=== PATIENT | female | born 1950 | race Caucasian/White ===

== ENCOUNTER → 2017-12-18 12:22 | Outpatient (CLI) | payer MEDICARE, OTHER, SELFPAY ==
--- NOTE | 2017-12-18 12:25 | HPBI_ITS ---
MAMMOGRAPHY - BILATERAL SCREENING REASON FOR EXAM: Female, 67 years old. Routine annual screening examination. PERTINENT HISTORY: Non-contributory. TECHNIQUE: Digital bilateral breast esther (3D mammographic acquisition) in the CC and MLO projections. 2-D mediolateral oblique (MLO) and craniocaudad (CC) views of both breasts were obtained. CAD: Full Field Digital Mammography with Computer Added Detection was performed. COMPARISON: Comparison is made with prior chest examination dated September 25, 2016. FINDINGS: Breast Composition: The breasts are heterogeneously dense, which may obscure small masses. There are no dominant masses or suspicious calcifications. No other significant abnormalities are identified. There has been no significant change since the prior study. HPBI/SCREENING MAMM (CAD), BILAT IMPRESSION: Stable bilateral screening mammogram. Yearly follow-up mammogram recommended. (A) ASSESSMENT CATEGORY: BIRADS Category 1: Negative. A letter regarding these results will be sent to the patient by the facility within 30 days. Approximately 10% of breast cancers are not detected by mammography. A normal mammogram should not delay biopsy of a clinically suspicious abnormality. [id number] Electronically Signed: Kieran Chaudhry MD at 13:36 EST Tel [phone], Service support ,
== END ==
PROVIDERS: Family Provider Family Medicine; PCP Family Medicine; Visit Provider Family Medicine
DX: Z12.31 Encounter for screening mammogram for malignant neoplasm of breast (principal)
CPT/HCPCS: 77063; 77067

== ENCOUNTER → 2018-03-13 09:31 | Outpatient (CLI) | payer MEDICARE, OTHER, SELFPAY ==
--- NOTE | 2018-03-13 09:33 | MRI_ITS ---
STUDY: MRI LEFT KNEE REASON FOR EXAM: Intermittent pain in knee since August, no specific injury. TECHNIQUE: Standardized fat and water weighted pulse sequences were obtained in all 3 orthogonal planes. COMPARISON: Radiographs 09/02/2017. FINDINGS: There is a small oblique/horizontal tear of the inferior articular surface of the anterior body of the medial meniscus (proton-density coronal image 17; proton density sagittal image 8; T2 coronal image 17). Normal hyaline cartilage of the medial femorotibial compartment. Normal medial femoral condyle and tibial plateau. Normal medial collateral ligamentous complex (MCL). Normal distal semimembranosus, gracilis and semitendinosus tendons. Normal lateral meniscus. Normal hyaline cartilage of the lateral femorotibial compartment. Normal lateral femoral condyle and tibial plateau. There is arthrosis of the proximal tibiofibular articulation with small marginal osteophytes and chondral thinning (T2 coronal image 12). Normal lateral collateral (fibular) ligament. Normal popliteus tendon. Normal biceps femoris tendon. Normal anterior cruciate ligament (ACL). Normal posterior cruciate ligament (PCL). Normal congruent patellofemoral articulation. Normal hyaline cartilage of the patellofemoral compartment. Normal medial and lateral patellar retinaculum. Normal quadriceps tendon. Normal patellar tendon. Normal Hoffa's fat pad. There is a small joint effusion. There is a thin medial patellar plica. There is a small popliteal cyst with mild extravasation of fluid (T2 sagittal images 7-9). There is a lobulated ganglion cyst at the medial aspect of the proximal tibiofibular articulation (T2 sagittal images 16, 17) measuring 1.3 cm in AP dimension. The otherwise visualized osseous structures are unremarkable. MRI/Lower Ext Joint Only (Routine) IMPRESSION: Small medial meniscal tear. Arthrosis of the proximal tibiofibular articulation. Small joint effusion. Small popliteal cyst with mild extravasation of fluid. Ganglion cyst adjacent to the proximal tibiofibular articulation. Electronically Signed: Karel Joshua MD at 11:01 EDT Tel , Service support ,
== END ==
PROVIDERS: Family Provider Family Medicine; PCP Family Medicine; Visit Provider Orthopaedic Surgery
DX: M23.92 Unspecified internal derangement of left knee (principal); S83.242A Other tear of medial meniscus, current injury, left knee, initial encounter
CPT/HCPCS: 73721

== ENCOUNTER 2018-03-28 14:00 | Outpatient (RCR) | payer MEDICARE, OTHER, SELFPAY ==
--- NOTE | 2018-01-28 15:43 | HP.PTEVAL_ITS ---
Patient's Visit Information BALJIT YADAV is a 67 year old F referred to Physical Therapy by Last Ogden DO with a diagnosis of L knee OA. Date of Evaluation: 01/28/18 Physical Therapist: Bhupinder Miller PT, - Visit Plan Frequency: 2-3x /Week Duration: 4 Weeks Plan: Aquatic therapy consisting of L knee stretching and strengthening, core stab ex's, and HEP - Subjective Subjective: Pt reports her L knee became really sore in July of 2017. Pt reports she was performin g squatting and klneeling activity at that time which resulted in sig pain in B knees. Pt reports her R knee pain resolved in 3 days, but her knee pain in the L LE has remained. Pt reports it limiting her ability to sit to stand and negotiate stairs. Pt reports she has had 2 cotisone injuections into her L knee, the first one really helping her, and the second one not helping at all. Pt reports she is very active and likes to walk in the [place], which she is unable to do at this time. Pt reports she is really unsteady on uneven ground. 1/10 at rest, 6/10 at worst (dexscending stairs) - Pain L knee Pain Intensity (Out of 10): 1 Pain Intensity Range: 6 - Objective Neuro: B LE sensation is WNL to light touch. B pat tendon reflex= 3/3. Palpation: Pt has crepitus on the medial joint line of the L knee with AROM. Girth at joint line: B knees 32 CM. MMT: R knee 5/5, L knee flex= 4+/5, ext= 4- /5. ROM: R knee 0-5-135; L knee 0-5-135. Special Tests: Pos apley's compression test - Goals Goal 1:: Decrease L knee pain x 50% to aid with ambulation Goal Time Frame: 4-6 Weeks Goal 2:: Increase L knee MMT x 1 grade to aid with IADL's Goal Time Frame: 4-6 Weeks Goal 3:: I with HEP Goal Time Frame: 4-6 Weeks - Rehabilitation Potential Physical Therapy Diagnosis: L knee pain and weakness secondary to deg changes Rehabilitation Potential: Good - Anticipated Interventions Patient/Client Instruction: Educate patient on: Condition, Plan of Care For the Purpose of:: To improve self management Therapeutic Exercise to Include: Strength training, Endurance training, Flexibilty training, In an aquatic setting, Dynamic Lumbar Stabilization For the Purpose of:: To decrease pain, To improve muscle performance and motor function, To increase tolerance to activity/condition/position Thank you for the opportunity to evaluate your patient. For Medicare and Medicare HMO plans, please review the plan of care and approve it. It will need to be FAXED BACK to us at [phone] for Medicare purposes. Please let me know if there are questions or concerns regarding this plan of care. Physician Signature: Date:
--- NOTE | 2018-03-28 14:36 | HP.PTDCSUM_ITS ---
HP - PT D/C Summary It has been my pleasure to treat BALJIT YADAV under orders from Last Ogden DO, for the diagnosis of L knee OA for a total of 21 visit(s). Discharge Date: Please see the following information for a summary of their discharge status. - Subjective Subjective: Pt reports her knee has been locking up a lot. minor pain at rest - Pain L knee Pain Intensity (Out of 10): 1 Lumbar Spine Pain Intensity (Out of 10): 0 - Objective Objective/Function: Girth at joint line: 31.5 cm. MMT: L knee flex= 5/5, ext= 4 /5. ROM: L knee 0-6-145. Pt is not progressing well at this time - Goals Goal 1:: Decrease L knee pain x 50% to aid with ambulation Goal Progress: Progressing Goal 2:: Increase L knee MMT x 1 grade to aid with IADL's Goal Progress: Progressing Goal 3:: I with HEP Goal Progress: Progressing - Plan Plan: Discontinue, RTD - D/C Information If there are questions or concerns regarding this patient's physical therapy, please feel free to call me at [phone]. Thank you for the referral of this patient. Sincerely, Bhupinder Miller, PT,
== END 2018-03-28 19:00 | disposition home or self-care (01) ==
LOC: PT 14:00
PROVIDERS: Family Provider Family Medicine; PCP Family Medicine; Visit Provider Orthopaedic Surgery
DX: M17.12 Unilateral primary osteoarthritis, left knee (principal); M23.304 Other meniscus derangements, unspecified medial meniscus, left knee
CPT/HCPCS: 97113; 97161; 97530

== ENCOUNTER → 2018-10-13 11:38 | Outpatient (CLI) | payer MEDICARE, OTHER, SELFPAY ==
[2018-10-13 15:05] LABS: T4 Total, Thyroxin 9.2 ug/dL (4.8-13.9); Thyroid Stim Hormone (TSH) 2.46 uIU/mL (0.358-3.74)
== END ==
PROVIDERS: Family Provider Family Medicine; PCP Family Medicine; Visit Provider Family Medicine
DX: E03.9 Hypothyroidism, unspecified (principal)
CPT/HCPCS: 36415; 84436; 84443

== ENCOUNTER → 2019-02-24 14:26 | Outpatient (CLI) | payer MEDICARE, OTHER, SELFPAY ==
--- NOTE | 2019-02-24 14:32 | BD_ITS ---
STUDY: DUAL ENERGY X-RAY ABSORPTIOMETRY / DXA REASON FOR EXAM: Female, 69 years old. Postmenopausal. Loss of height. TECHNIQUE: Bone Mineral Density (BMD) measurements of lumbar spine and bilateral hips were obtained. COMPARISON: None. FINDINGS: Lumbar Spine (L1-L4): g/cm2 (0.913) / T-score (-2.1) / Z-score (0.4) Findings are suggestive of osteopenia with a moderate fracture risk. Left Femur Total: g/cm2 (0.693) / T-score (-2.5) / Z-score (-1.0) Left Femoral Neck: g/cm2 (0.688) / T-score (-2.5) / Z-score (-0.8) Right Femur Total: g/cm2 (0.678) / T-score (-2.6) / Z-score (-1.2) Right Femoral Neck: g/cm2 (0.747) / T-score (-2.1) / Z-score (-0.4) BD/Dexa Bone Density Study IMPRESSION: The patient is considered osteoporotic as outlined below according to World Tacho Organization (WHO) criteria with a high fracture risk. Reference Information: The T-score is the number of standard deviations above or below the standard which is normal for young adults at their peak bone mineral density. The World Health Organization (WHO) interprets the T-scores as follows: Above -1 Normal bone density Between -1 and -2.5 Osteopenia Equal to / or below -2.5 Osteoporosis As a practical clinical guideline, osteopenia may be graded as follows: Mild -1 through -1.5 Moderate -1.6 through -2.0 Severe -2.1 through -2.4 The Z-score is the number of standard deviations above or below age-matched controls. A Z-score of less than -1.5 would be considered abnormal. References: 1. NIH Osteoporosis and Related Bone Diseases http://www.osteo.org 2. International Society for Clinical Densitometry http://www.iscd.org 3. National Osteoporosis Foundation http://www.nof.org Electronically Signed: Kieran Chaudhry, at 15:21 EDT , Service support ,
--- NOTE | 2019-02-24 14:46 | BI_ITS ---
MAMMOGRAPHY - BILATERAL SCREENING REASON FOR EXAM: Female, 69 years old. Routine annual screening examination. PERTINENT HISTORY: Non-contributory. TECHNIQUE: Digital bilateral breast esther (3D mammographic acquisition) in the CC and MLO projections. 2-D mediolateral oblique (MLO) and craniocaudad (CC) views of both breasts were obtained. CAD: Full Field Digital Mammography with Computer Added Detection was performed. COMPARISON: Comparison is made with prior study from December 18, 2017. FINDINGS: Breast Composition: The breasts are heterogeneously dense, which may obscure small masses. There are no dominant masses or suspicious calcifications. No other significant abnormalities are identified. There has been no significant change since the prior study. BI/SCREENING MAMM (CAD), BILAT IMPRESSION: Stable bilateral screening mammogram. Yearly follow-up mammogram recommended. (A) ASSESSMENT CATEGORY: BIRADS Category 1: Negative. A letter regarding these results will be sent to the patient by the facility within 30 days. Approximately 10% of breast cancers are not detected by mammography. A normal mammogram should not delay biopsy of a clinically suspicious abnormality. [id number] Electronically Signed: Kieran Chaudhry, at 7:57 EDT , Service support ,
== END ==
PROVIDERS: Family Provider Family Medicine; PCP Family Medicine; Referring Provider Family Medicine; Visit Provider Family Medicine
DX: Z12.31 Encounter for screening mammogram for malignant neoplasm of breast (principal); N95.9 Unspecified menopausal and perimenopausal disorder
CPT/HCPCS: 77063; 77067; 77080

== ENCOUNTER → 2019-06-10 14:29 | Outpatient (CLI) | payer MEDICARE, OTHER, SELFPAY ==
[2019-05-11 13:19] VITALS: BMI 23.8
--- NOTE | 2019-06-10 14:37 | RAD_ITS ---
STUDY: X-RAY CHEST REASON FOR EXAM: Female, 69 years old. Cough. COPD. TECHNIQUE: 2 view chest. COMPARISON: 06/12/2015 CXR FINDINGS: No evidence of pneumonia, pulmonary edema, pneumothorax or pleural effusion. Emphysematous changes within the lungs. Cardiac silhouette, hilar and mediastinal contours with no acute findings. Atherosclerosis of the thoracic aorta. Degenerative osseous changes with no acute osseous abnormality. RAD/Chest PA and Lateral IMPRESSION: No acute findings. Emphysema. Electronically Signed: Richard Doe, at 15:02 EDT Tel , Service support ,
[2019-06-10 16:00] LABS: Erythrocyte Sedimentation Rate 1 mm/hr (0-30)
[2019-06-10 16:01] LABS: Absolute Lymphocyte Count 2.47 X10^3/uL (0.83-4.51); Absolute Neutrophil Count 6.2 X10^3/uL (2.0-7.7); Basophil# 0.08 X10^3/uL; Basophil% 0.8 % (0-1); Eosinophil# 0.29 X10^3/uL; Hematocrit 50.1 % (37-47); Hemoglobin 16.5 g/dL (12.0-15.0); Lymphocyte # 2.47 X10^3/ul (4.0); Lymphocyte % 25.1 % (19-41); Mean Corp Hgb Conc 32.9 g/dL (32-36); Mean Corpuscular Hgb 30.8 pg (27.0-32.0); Mean Corpuscular Volume 93.6 fL (81-99); Mean Platelet Vol. 12.3 fl (6.2-12.0); Monocyte# 0.74 X10^3/uL; Monocyte% 7.5 % (0-10); NRBC Flagged by Analyzer 0 % (0-5); Neutrophil # 6.22 X10^3/uL (2.7-7.7); Neutrophil % 63.3 % (47-70); Platelet Count 173 K/mm3 (150-450); RBC Distribution Width CV 14.2 % (11.6-14.6); RBC Distribution Width SD 48.9 fl (35.1-43.9); Red Blood Count 5.35 M/mm3 (4.2-5.4); White Blood Count 9.8 K/mm3 (4.4-11.0)
[2019-06-10 16:11] LABS: AST(SGOT) 16 U/L (15-37); Alanine Aminotransfer ALT/SGPT 26 U/L (13-56); Albumin, Serum 3.6 g/dL (3.2-5.0); Alkaline Phosphatase 86 U/L (45-117); Anion Gap 3 (5-15); BUN 13 mg/dL (7-18); BUN/Creat Ratio 15.9 RATIO (10-20); Calcium,Total 9.5 mg/dL (8.5-10.1); Chloride 106 mmol/L (98-107); Creatinine, Serum 0.82 mg/dL (0.55-1.02); EST Glomerular Filtration Rate 73 mL/min (>60); Est Glom Filt Rate - Afr Amer 89 mL/min (>60); Globulin 3.5 g/dL (2.2-4.2); Glucose 86 mg/dL (74-106); Potassium 3.8 mmol/L (3.5-5.1); Protein, Total 7.1 g/dL (6.4-8.2); Sodium Level 144 mmol/L (136-145)
== END ==
PROVIDERS: Family Provider Family Medicine; PCP Family Medicine; Referring Provider Family Medicine; Visit Provider Family Medicine
DX: J44.9 Chronic obstructive pulmonary disease, unspecified (principal); R53.83 Other fatigue; R53.81 Other malaise; E83.2 Disorders of zinc metabolism
CPT/HCPCS: 36415; 71046; 80053; 85025; 85652

== ENCOUNTER → 2019-07-13 13:19 | Outpatient (CLI) | payer MEDICARE, OTHER, SELFPAY ==
[2019-07-06 10:44] VITALS: BMI 24.1
--- NOTE | 2019-07-13 13:20 | CT_ITS ---
STUDY: CT CHEST WITHOUT CONTRAST- LOW DOSE SCREENING PROTOCOL REASON FOR EXAM: Female, 69 years old. Current smoker. 75 pack per year history. No current symptoms of lung cancer or pulmonary infection. Shared decision-making with referring PCP documented in patient's record. RADIATION DOSAGE (If Supplied By Facility): CTDIvol = ( 2.01 ) mGy, DLP = ( 73.99 ) mGycm TECHNIQUE: Low dose screening CT examination performed from the base of the neck to the upper abdomen. Sagittal and coronal reformatted images performed. Sagittal and coronal MIP images provided. The measurements provided are average, rounded measurements per ACR guidelines. COMPARISON: None. FINDINGS: Mild emphysematous changes. 4 mm noncalcified subpleural nodule right lower lobe the lungs and follow-up CT the chest is recommended in 12 months document stability. There is no demonstrated pleural abnormality. Normal heart and pericardium. There are calcifications of the coronary arteries. Normal mediastinum. Normal hilar regions. Normal unenhanced pulmonary arteries. Normal aorta arch and descending thoracic aorta. Normal osseous structures. There is no demonstrated abnormality of the visualized upper abdomen. CT/Low Dose CT Lung Screening IMPRESSION: 1. Mild emphysema with a 4 mm noncalcified subpleural right lower lobe nodule and follow-up CT the chest is recommended in 12 months document stability.. 2. Incidental findings include calcified coronary artery plaque.. ASSESSMENT CATEGORY: LungRADS 2 - Benign Appearance or Behavior. Continue annual screening with LDCT in 12 months, per established ACR guidelines. Electronically Signed: Jasson Avendano MD at 14:21 EDT Tel , Service support ,
== END ==
PROVIDERS: Family Provider Family Medicine; PCP Family Medicine; Referring Provider Internal Medicine Critical Care Medicine; Visit Provider Internal Medicine Critical Care Medicine
DX: Z87.891 Personal history of nicotine dependence (principal)
CPT/HCPCS: G0297

== ENCOUNTER → 2019-07-21 20:00 | Outpatient (CLI) | payer MEDICARE, OTHER, SELFPAY ==
[2019-07-06 10:44] VITALS: BMI 24.1
== END ==
PROVIDERS: Family Provider Family Medicine; PCP Family Medicine; Referring Provider Internal Medicine Critical Care Medicine; Visit Provider Internal Medicine Critical Care Medicine
DX: G47.10 Hypersomnia, unspecified (principal)
CPT/HCPCS: 95810

== ENCOUNTER → 2019-07-29 12:32 | Outpatient (CLI) | payer MEDICARE, OTHER, SELFPAY ==
[2019-07-06 10:44] VITALS: BMI 24.1
[2019-07-29 12:30] VITALS: PULSE 77; PULSE 79; PULSE 90; PULSE 91; PULSE 94; O2SAT 90; O2SAT 91; O2SAT 92; O2SAT 93; O2SAT 94
--- NOTE | 2019-07-30 15:54 | PCM.PSN.6M ---
PSN 6 Minute Walk Test - 6 Minute Walk Test 6 Minute Walk Test: 6 Minute Walk Test PSN:6-Minute Walk Test Start: 07/29/19 14:06 Freq: Status: Active Protocol: RESP.6MINW Document 07/29/19 12:30 EW (Rec: 07/29/19 14:11 EW [id number]) 6 Minute Walk Test Date Performed 07/29/19 Time Performed 12:30 Height 5 ft 2 in Weight: 59.874 kg Weight in Pounds 132.[address]: Tk Delgadillo Assistive device used: None Pre-test Oxygen Delivery Method Room Air Pulse Ox (%) 93 Pulse Rate (60-100 beats/min) 77 Dyspnea Geovanny Scale (0-10) 2 Exertion Geovanny Scale (6-20) 6 1st minute Oxygen Delivery Method Room Air Pulse Ox (%) 91 Pulse Rate (60-100 beats/min) 91 2nd minute Oxygen Delivery Method Room Air Pulse Ox (%) 90 Pulse Rate (60-100 beats/min) 91 3rd minute Oxygen Delivery Method Room Air Pulse Ox (%) 90 Pulse Rate (60-100 beats/min) 94 4th minute Oxygen Delivery Method Room Air Pulse Ox (%) 90 Pulse Rate (60-100 beats/min) 90 5th minute Oxygen Delivery Method Room Air Pulse Ox (%) 90 Pulse Rate (60-100 beats/min) 91 6th minute Oxygen Delivery Method Room Air Pulse Ox (%) 92 Pulse Rate (60-100 beats/min) 94 Post-test Oxygen Delivery Method Room Air Pulse Ox (%) 94 Pulse Rate (60-100 beats/min) 79 Dyspnea Geovanny Scale (0-10) 3 Exertion Geovanny Scale (6-20) 11 Full Laps Walked 18 Partial Lap, Number of Tiles Walked 0 Total Distance Walked (ft) 1062 - Interpretation Interpretation: The patient was able to ambulate 1006 feet over the course of 6 minutes on room air with no assistive devices or breaks. The patient did desaturate as low as 90%, but no tachycardia was noted on testing. These findings are consistent with a respiratory limitation exercise tolerance. - Recommendations Recommendations: No supplemental oxygen is indicated at this time.
== END ==
PROVIDERS: Family Provider Family Medicine; PCP Family Medicine; Referring Provider Internal Medicine Critical Care Medicine; Visit Provider Internal Medicine Critical Care Medicine
DX: R06.09 Other forms of dyspnea (principal); Z72.0 Tobacco use
CPT/HCPCS: 94618

== ENCOUNTER → 2019-08-06 12:56 | Outpatient (CLI) | payer MEDICARE, OTHER, SELFPAY ==
[2019-07-06 10:44] VITALS: BMI 24.1
--- NOTE | 2019-08-07 11:52 | PFT ---
INTRODUCTION: The patient is a 69-year-old female that presents for pulmonary function studies secondary to a diagnosis of COPD. Respiratory therapy reports good patient effort. Bronchodilators were used during testing. INTERPRETATION: Forced expiration spirometry demonstrates the presence of a severe large airways obstructive ventilatory defect. There was no significant response to aerosolized bronchodilators. Spirograms are of fair quality and do not plateau indicating slow emptying of the lungs. Body plethysmography was performed and reveals a increased RV to 143% of predicted, indicative of underlying air trapping. Diffusing capacity by single breath CO is reduced at 48% of predicted. IMPRESSION: Irreversible severe large airways obstructive ventilatory defect with associated air trapping and symmetric reduction in diffusing capacity.
== END ==
PROVIDERS: Family Provider Family Medicine; PCP Family Medicine; Referring Provider Internal Medicine Critical Care Medicine; Visit Provider Internal Medicine Critical Care Medicine
DX: R06.09 Other forms of dyspnea (principal); Z72.0 Tobacco use
CPT/HCPCS: 94060; 94726; 94729

== ENCOUNTER → 2019-08-27 20:00 | Outpatient (CLI) | payer MEDICARE, OTHER, SELFPAY ==
[2019-07-06 10:44] VITALS: BMI 24.1
== END ==
PROVIDERS: Family Provider Family Medicine; PCP Family Medicine; Referring Provider Internal Medicine Critical Care Medicine; Visit Provider Internal Medicine Critical Care Medicine
DX: G47.10 Hypersomnia, unspecified (principal)
CPT/HCPCS: 95810

== ENCOUNTER → 2019-10-30 20:16 | Outpatient (CLI) | payer MEDICARE, OTHER, SELFPAY ==
[2019-10-12 07:24] VITALS: BMI 24.5
== END ==
PROVIDERS: PCP Family Medicine; Referring Provider Internal Medicine Critical Care Medicine; Visit Provider Internal Medicine Critical Care Medicine
DX: G47.33 Obstructive sleep apnea (adult) (pediatric) (principal)
CPT/HCPCS: 95811

== ENCOUNTER → 2019-12-16 14:06 | Outpatient (CLI) | payer MEDICARE, OTHER, SELFPAY ==
[2019-12-16 14:00] VITALS: BMI 24.5
--- NOTE | 2019-12-16 14:07 | RAD_ITS ---
STUDY: X-RAY - LEFT KNEE REASON FOR EXAM: Pain, injury 3 weeks ago. TECHNIQUE: 4 view(s) of the knee. COMPARISON: Radiographs 09/02/2017. FINDINGS: There is osteopenia. Normal visualized distal femur. Normal visualized proximal tibia and fibula. There is arthrosis of the proximal tibiofibular articulation. Normal medial femorotibial compartment. Normal lateral femorotibial compartment. Normal patellofemoral articulation. There is mild vascular calcification. RAD/Knee 4 or More Views IMPRESSION: Arthrosis of the proximal tibiofibular articulation. Osteopenia. Electronically Signed: Karel Joshua MD at 14:43 EST Tel , Service support ,
--- NOTE | 2019-12-16 14:07 | RAD_ITS ---
STUDY: X-RAY - PELVIS AND LEFT HIP REASON FOR EXAM: Pain, injury 3 weeks ago. TECHNIQUE: 2 views of the pelvis and hip. COMPARISON: None. FINDINGS: There is osteopenia. There is mild vascular calcification. Normal bilateral iliac wings, sacroiliac joints and visualized sacrum. Normal bilateral superior and inferior pubic rami. Normal pubic symphysis. Normal bilateral ischial tuberosities. Normal visualized femoral head. Normal acetabulum. There is mild joint space narrowing of the superior medial left hip joint. RAD/HIP, UNI W/ Pelvis 2-3 Views IMPRESSION: Mild left hip arthrosis. Electronically Signed: Karel Joshua MD at 15:33 EST Tel , Service support ,
== END ==
PROVIDERS: PCP Family Medicine; Referring Provider Orthopaedic Surgery; Visit Provider Orthopaedic Surgery
DX: M25.552 Pain in left hip (principal); M25.562 Pain in left knee
CPT/HCPCS: 73502; 73564

== ENCOUNTER → 2020-06-13 | Outpatient (CLI) | payer MEDICARE, OTHER, SELFPAY ==
[2020-01-04 08:17] VITALS: BMI 24.7
--- NOTE | 2020-06-14 14:17 | PFTCOMP ---
COMPLETE PULMONARY FUNCTION TEST INTERPRETATION Brief HPI: Patient is a 70 year old female, currently under the care of Shanae Giraldo, who presents to [facility] for complete pulmonary function tests secondary to diagnosis of COPD. Respiratory therapist reports good effort and reproducible results. Interpretation: Forced expiration spirometry shows a moderate large airways obstructive ventilatory defect with an FEV1 of 62% predicted. There is no significant bronchodilator response by strict ATS criteria. Spirograms are of good quality and plateau slowly, indicating slowly emptying areas of the lungs. The respiratory flow volume loop shows decreased expiratory flow rates at all lung volumes consistent with airway obstruction. Lung volumes by body plethysmography show a normal total lung capacity at 4.11 L, 93% predicted. All other lung volumes are within normal limits. Diffusion capacity by carbon monoxide is decreased at 53% predicted. The airway resistance is elevated. Compared to previous pulmonary function tests from 08/06/2019, there has been a significant improvement in FVC and FEV1 by 20% and 29% respectively. Impression: Irreversible moderate large airways obstructive ventilatory defect with a symmetric reduction diffusion capacity, but significant improvement compared to previous study.
== END | disposition home or self-care (01) ==
PROVIDERS: PCP Family Medicine; Referring Provider Nurse Practitioner Acute Care; Visit Provider Nurse Practitioner Acute Care
DX: J44.9 Chronic obstructive pulmonary disease, unspecified (principal)
CPT/HCPCS: 94060; 94726; 94729

== ENCOUNTER → 2020-07-29 | Outpatient (CLI) | payer MEDICARE, OTHER, SELFPAY ==
[2020-06-21 13:44] VITALS: BMI 24.3
[2020-07-29 18:01] LABS: T4 Total, Thyroxin 8.3 ug/dL (4.8-13.9); Thyroid Stim Hormone (TSH) 2.63 uIU/mL (0.358-3.74)
== END | disposition home or self-care (01) ==
LOC: MFPLAB 15:42
PROVIDERS: PCP Family Medicine; Referring Provider Family Medicine; Visit Provider Family Medicine
DX: E03.9 Hypothyroidism, unspecified (principal)
CPT/HCPCS: 36415; 84436; 84443

== ENCOUNTER 2020-12-15 09:48 | Outpatient (RCR) | payer MEDICARE, OTHER, SELFPAY ==
[2020-12-07 11:19] VITALS: BMI 25.0
[2020-12-15] MEDS: COVID-19 VACC, MRNA(PFIZER)/PF 30 MCG/0.3 ML SYRINGE IM (11:47)
[2021-01-05] MEDS: COVID-19 VACC, MRNA(PFIZER)/PF 30 MCG/0.3 ML SYRINGE IM (11:41)
== END 2020-12-15 23:59 ==
LOC: IMMUN 09:48
PROVIDERS: PCP Family Medicine; Visit Provider Family Medicine
DX: Z23 Encounter for immunization (principal)
CPT/HCPCS: 0001A; 0002A

== ENCOUNTER → 2020-12-26 13:28 | Outpatient (CLI) | payer MEDICARE, OTHER, SELFPAY ==
[2020-12-07 11:19] VITALS: BMI 25.0
--- NOTE | 2020-12-26 13:33 | CT_ITS ---
STUDY: CT CHEST WITHOUT CONTRAST- LOW DOSE SCREENING PROTOCOL REASON FOR EXAM: Female, 70 years old. Current smoker. 40 pack per year history. No current symptoms of lung cancer or pulmonary infection. Shared decision-making with referring PCP documented in patient''s record. RADIATION DOSAGE (If Supplied By Facility): CTDIvol = ( 1.70 ) mGy, DLP = ( 55.31 ) mGycm TECHNIQUE: Low dose screening CT examination performed from the base of the neck to the upper abdomen. Sagittal and coronal reformatted images performed. Sagittal and coronal MIP images provided. The measurements provided are average, rounded measurements per ACR guidelines. COMPARISON: 07/13/2019 FINDINGS: Mild emphysematous changes. No change in a 4 mm noncalcified nodule subpleural right lower lobe the lungs on image 169 consistent with a noncalcified granuloma. There is also no change in a 4 mm noncalcified nodule peripherally the left lower lobe the lungs on image 189 consistent with a noncalcified granuloma. No new noncalcified nodule or mass. There is no demonstrated pleural abnormality. Normal heart and pericardium. There are calcifications of the coronary arteries. Normal mediastinum. Normal hilar regions. Normal unenhanced pulmonary arteries. Normal aorta arch and descending thoracic aorta. Normal osseous structures. There is no demonstrated abnormality of the visualized upper abdomen. CT/Low Dose CT Lung Screening IMPRESSION: 1. No significant indeterminate incidental findings requiring additional imaging. 2. Incidental findings include mild emphysema and some noncalcified granulomata.. ASSESSMENT CATEGORY: LungRADS 1 - Negative. Continue annual screening with LDCT in 12 months, per established ACR guidelines. Electronically Signed: Jasson Avendano MD at 18:17 EDT Tel , Service support ,
== END ==
PROVIDERS: PCP Family Medicine; Referring Provider Nurse Practitioner Acute Care; Visit Provider Nurse Practitioner Acute Care
DX: F17.210 Nicotine dependence, cigarettes, uncomplicated (principal); Z12.2 Encounter for screening for malignant neoplasm of respiratory organs
CPT/HCPCS: 71271

== ENCOUNTER → 2021-01-19 11:10 | Outpatient (CLI) | payer MEDICARE, OTHER, SELFPAY ==
[2020-12-07 11:19] VITALS: BMI 25.0
[2021-01-19 11:15] VITALS: PULSE 69; PULSE 78; PULSE 80; PULSE 81; PULSE 85; PULSE 88; PULSE 89; PULSE 94; O2SAT 91; O2SAT 92; O2SAT 93; O2SAT 94
--- NOTE | 2021-01-20 08:49 | WT_ITS ---
PSN 6 Minute Walk Test - 6 Minute Walk Test 6 Minute Walk Test: 6 Minute Walk Test PSN:6-Minute Walk Test Start: 01/19/21 11:38 Freq: Status: Active Protocol: RESP.6MINW Document 01/19/21 11:15 EW (Rec: 01/19/21 11:44 EW [id number]) 6 Minute Walk Test Date Performed 01/19/21 Time Performed 11:15 Height 5 ft 3 in Weight: 135 lb Weight in Pounds 135.[address]: Shanae Giraldo [employer] Assistive device used: None Pre-test Oxygen Delivery Method Room Air Pulse Ox (%) 93 Pulse Rate (60-100 beats/min) 69 Dyspnea Geovanny Scale (0-10) 1 Exertion Geovanny Scale (6-20) 8 1st minute Oxygen Delivery Method Room Air Pulse Ox (%) 93 Pulse Rate (60-100 beats/min) 85 2nd minute Oxygen Delivery Method Room Air Pulse Ox (%) 91 Pulse Rate (60-100 beats/min) 94 3rd minute Oxygen Delivery Method Room Air Pulse Ox (%) 91 Pulse Rate (60-100 beats/min) 80 4th minute Oxygen Delivery Method Room Air Pulse Ox (%) 91 Pulse Rate (60-100 beats/min) 89 Reported Symptoms Increased Work of Breathing 5th minute Oxygen Delivery Method Room Air Pulse Ox (%) 91 Pulse Rate (60-100 beats/min) 81 6th minute Oxygen Delivery Method Room Air Pulse Ox (%) 92 Pulse Rate (60-100 beats/min) 88 Post-test Oxygen Delivery Method Room Air Pulse Ox (%) 94 Pulse Rate (60-100 beats/min) 78 Dyspnea Geovanny Scale (0-10) 3 Exertion Geovanny Scale (6-20) 12 Full Laps Walked 17 Partial Lap, Number of Tiles Walked 0 Total Distance Walked (ft) 1003 - Interpretation Interpretation: The patient ambulated 1003 feet over the course of 6 minutes beginning on room air without assistive devices or breaks. Pretesting oxygen saturation was noted to be 93% on room air. With ambulation, the aime oxygen saturation was 91%. There was no significant exertional oxygen desaturation. - Recommendations Recommendations: There is no indication for the use of supplemental oxygen at this time.
== END ==
PROVIDERS: PCP Family Medicine; Referring Provider Nurse Practitioner Acute Care; Visit Provider Nurse Practitioner Acute Care
DX: J44.9 Chronic obstructive pulmonary disease, unspecified (principal)
CPT/HCPCS: 94618

== ENCOUNTER → 2021-02-03 13:04 | Outpatient (CLI) | payer MEDICARE, OTHER, SELFPAY ==
[2020-06-21 13:44] VITALS: BMI 24.3
[2020-12-07 11:19] VITALS: BMI 25.0
--- NOTE | 2021-02-03 13:05 | BI_ITS ---
MAMMOGRAPHY - BILATERAL SCREENING REASON FOR EXAM: Female, 70 years old. Routine annual screening examination. PERTINENT HISTORY: Non-contributory. TECHNIQUE: Digital bilateral breast matt (3D mammographic acquisition) in the CC and MLO projections. 2-D mediolateral oblique (MLO) and craniocaudad (CC) views of both breasts were obtained. CAD: Full Field Digital Mammography with Computer Added Detection was performed. COMPARISON: Comparison is made with prior study dated 02/24/2019 and 12/18/2017. FINDINGS: Breast Composition: The breasts are heterogeneously dense, which may obscure small masses. There are no dominant masses or suspicious calcifications. Stable benign appearing bilateral axillary lymph nodes. No other significant abnormalities are identified. There has been no significant change since the prior study. BI/SCRN MAMM (CAD)W/MATT BILAT IMPRESSION: Stable bilateral screening mammogram. Yearly follow-up mammogram recommended. (A) ASSESSMENT CATEGORY: BIRADS Category 2: Benign. A letter regarding these results will be sent to the patient by the facility within 30 days. Approximately 10% of breast cancers are not detected by mammography. A normal mammogram should not delay biopsy of a clinically suspicious abnormality. [id number] Electronically Signed: Kieran Chaudhry MD at 13:59 EDT , Service support ,
== END ==
PROVIDERS: PCP Family Medicine; Referring Provider Family Medicine; Visit Provider Family Medicine
DX: Z12.31 Encounter for screening mammogram for malignant neoplasm of breast (principal)
CPT/HCPCS: 77063; 77067

== ENCOUNTER → 2021-05-10 13:07 | Outpatient (CLI) | payer MEDICARE, OTHER, SELFPAY ==
[2020-12-07 11:19] VITALS: BMI 25.0
--- NOTE | 2021-05-11 08:34 | PFT ---
INTRODUCTION: The patient is a 71-year-old female that presents for pulmonary function studies secondary to a diagnosis of COPD. Respiratory therapy reported good patient effort. Bronchodilators were used during testing. INTERPRETATION: Forced expiration spirometry demonstrates the presence of a moderate large airways obstructive ventilatory defect. There was no significant response to aerosolized bronchodilators. Spirograms are of good quality but do not plateau indicating slow emptying of the lungs. Body plethysmography was performed and reveals lung volumes to be within normal limits. Diffusing capacity by single breath CO is reduced at 44% of predicted. When compared to prior pulmonary function studies from May 2020, there has been a 16% reduction in DLCO. IMPRESSION: Irreversible moderate large airways obstructive ventilatory defect with preserved lung volumes and symmetric reduction in diffusing capacity.
== END ==
PROVIDERS: PCP Family Medicine; Referring Provider Nurse Practitioner Acute Care; Visit Provider Nurse Practitioner Acute Care
DX: J44.9 Chronic obstructive pulmonary disease, unspecified (principal)
CPT/HCPCS: 94060; 94726; 94729

== ENCOUNTER → 2021-09-25 15:37 | Outpatient (CLI) | payer MEDICARE, OTHER, SELFPAY ==
[2021-09-25 18:37] LABS: T4 Free Direct 0.97 ng/dL (0.76-1.46); Thyroid Stim Hormone (TSH) 3.51 uIU/mL (0.358-3.74)
== END ==
PROVIDERS: PCP Family Medicine; Visit Provider Family Medicine
DX: E03.9 Hypothyroidism, unspecified (principal)
CPT/HCPCS: 36415; 84439; 84443

== ENCOUNTER 2021-12-21 07:37 | Outpatient (CLI) | payer MEDICARE, OTHER, SELFPAY ==
--- NOTE | 2021-12-21 | EMB_PTH ---
PATIENT: BALJIT YADAV LOC: [facility] U#:[id number] AGE/SX: 71/F ROOM: RE12/21/[address]: Dr. Sheri Lawson DO : 1950 BED: DIS: 12/21/2021 SPEC #: [id number] RECD: 12/21/21 14:39 STATUS: MALATHI YENIFER #: [id number] SWETHA: 12/21/21 00:[address]: Sheri Lawson DEPT: SURGICAL PATHOLOGY RECD BY: Immanuel Womack ENTERED: 12/22/21 10:05 SP TYPE: ENDOM BX/C OTHR DR: Dr. Radha Sykes MD Tissues: Endometrium, NOS Procedures: Surgery Specimen Level IV HEADER OPERATION: Endometrial biopsy PRE-OP DIAGNOSIS: Abnormal uterine bleeding TISSUE SUBMITTED: Endometrial lining MICROSCOPIC DIAGNOSIS Endometrial biopsy: Scant minute fragments benign endometrial epithelium and numerous macrophages. See comment. SJ:clifford 12/25/2021 COMMENT The specimen is insufficient for further evaluation. Re-biopsy is suggested if clinically indicated. Case has been reviewed in consultation with Dr. Johnson who concurs with the above diagnosis. IDC:AM MICROSCOPIC DESCRIPTION Slides are reviewed. GROSS DESCRIPTION Received is one container labeled with the patient's name and not further designated. The specimen consists of a scant amount of soft tissue. The specimen is totally submitted for cell block preparation. / SJ:clifford 12/22/2021 TC: Cannot code CPT: 35739
[2021-12-25 19:07] LABS: Chlamydia By Nucleic Acid AMP Negative (Negative)
[2021-12-25 20:56] LABS: Gonococcus By Nucleic Acid AMP Negative (Negative)
== END 2021-12-21 23:59 | disposition home or self-care (01) ==
LOC: LABSPEC 12-22 07:38
PROVIDERS: PCP Family Medicine; Visit Provider Obstetrics & Gynecology
DX: Z11.3 Encounter for screening for infections with a predominantly sexual mode of transmission (principal)
CPT/HCPCS: 87491; 87591; 88305

== ENCOUNTER 2021-12-26 14:09 | Outpatient (CLI) | payer MEDICARE, OTHER, SELFPAY ==
--- NOTE | 2021-12-26 14:14 | CT_ITS ---
STUDY: LOW DOSE CT LUNG CANCER SCREENING REASON FOR EXAM: Female, 71 years old. 1 pack per day smoker x52 years RADIATION DOSAGE (If Supplied By Facility): CTDIvol = ( ) mGy, DLP = ( ) mGycm TECHNIQUE: No contrast was administered. Low dose technique was utilized (average mAS-38 and kVp 120). 1.25 mm axial source images with a slice interval of 1.25-mm were reconstructed in lung windows. 2.5 mm axial source images with a slice interval of 2.5-mm were reconstructed in lung windows. 5.0 mm axial source images with a slice interval of 5.0-mm were reconstructed in soft tissue windows. Nodule measured using lung windows on PACS and/or independent workstation with automated measurement of minimum and maximum diameter. Nodule measurement reported as average diameter rounded to the nearest whole number. Growth is defined as an increase ins size of greater than 1.5 mm. COMPARISON: 12/26/2020 FINDINGS: The lung windows again show underlying emphysema. Interstitial changes noted in both lung anderson without an organized infiltrate, or groundglass opacifications no suspicious noncalcified mass or nodule. Soft tissues show normal-appearing thyroid gland. No suspicious adenopathy. Peripheral calcifications in the thoracic aorta without aneurysm. There are calcified coronary vessels. No pleural or pericardial effusions. Bony structures show degenerative change. Limited cuts to the upper abdomen do not show a suspicious abnormality. Overall, no significant interval change since the previous study CT/Low Dose CT Lung Screening IMPRESSION: Lung-RADS category 2 - Continue annual screening with LDCT in 12 months. IMPORTANT NOTES FOR USE: ACR Lung-RADS Version 1.1 Assessment Categories Release Date: 2018 Category: Coded 0-4 bases on nodule(s) with highest degree of suspicion. Negative screen is defined as categories 1 and 2; a positive screen is defined as categories 3 and 4. Category 3 and 4A nodules that are unchanged on interval CT should be coded as category 2, and individuals returned to screening in 12 months. Category 4X: Category 3 or 4 nodules with additional imaging findings that increase the suspicion of lung cancer, such as spiculation, GGN that doubles in size in 1 year, enlarged lymph notes, etc. Category Modifiers: S (significant finding unrelated to lung cancer) Electronically Signed: Fred Perez MD at 14:56 EDT ,
== END 2021-12-26 23:59 | disposition home or self-care (01) ==
LOC: CT 14:12
PROVIDERS: PCP Family Medicine; Referring Provider Nurse Practitioner Acute Care; Visit Provider Nurse Practitioner Acute Care
DX: Z87.891 Personal history of nicotine dependence (principal)
CPT/HCPCS: 71271

== ENCOUNTER 2021-12-29 12:33 | Outpatient (CLI) | payer MEDICARE, OTHER, SELFPAY ==
--- NOTE | 2021-12-29 12:35 | US_ITS ---
STUDY: ULTRASOUND OF THE FEMALE PELVIS - COMPLETE REASON FOR EXAM: Female, 71 years old. AUB LMP: Postmenopausal TECHNIQUE: Transabdominal and Transvaginal TECHNICAL QUALITY: Adequate. COMPARISON: None. FINDINGS: The uterus is anteverted and is in a midline position. The uterus measures 5.9 x 4.4 x 3 cm. There is a Nabothian cyst of the cervix. The endometrium measures 8 mm in thickness, and is hyperechoic. There is no demonstrated endometrial mass. There is no demonstrated myometrial mass. I.U.D. - The patient does not have an I.U.D. The right ovary is visualized. The right ovary measures 1.7 x 1.2 x 1.3 cm. There is no right ovarian cyst or ovarian mass. There is no visualized right adnexal mass or complex lesion. There is normal arterial and normal venous vascularity. The left ovary is visualized. The left ovary measures 1.5 x 1.6 x 1.5 cm. There is no left ovarian cyst or ovarian mass. There is no visualized left adnexal mass or complex lesion. There is normal arterial and normal venous vascularity. There is no fluid in the cul-de-sac. The pre void volume of the bladder was 450 ml. Polycystic ovary disease: No. US/Pelvic (Non ) IMPRESSION: 8 mm endometrial thickness. Otherwise normal appearance of the postmenopausal female pelvis. Electronically Signed: Dae Fontenot MD at 21:57 EDT ,
--- NOTE | 2021-12-29 12:35 | US_ITS ---
STUDY: ULTRASOUND OF THE FEMALE PELVIS - COMPLETE REASON FOR EXAM: Female, 71 years old. AUB LMP: Postmenopausal TECHNIQUE: Transabdominal and Transvaginal TECHNICAL QUALITY: Adequate. COMPARISON: None. FINDINGS: The uterus is anteverted and is in a midline position. The uterus measures 5.9 x 4.4 x 3 cm. There is a Nabothian cyst of the cervix. The endometrium measures 8 mm in thickness, and is hyperechoic. There is no demonstrated endometrial mass. There is no demonstrated myometrial mass. I.U.D. - The patient does not have an I.U.D. The right ovary is visualized. The right ovary measures 1.7 x 1.2 x 1.3 cm. There is no right ovarian cyst or ovarian mass. There is no visualized right adnexal mass or complex lesion. There is normal arterial and normal venous vascularity. The left ovary is visualized. The left ovary measures 1.5 x 1.6 x 1.5 cm. There is no left ovarian cyst or ovarian mass. There is no visualized left adnexal mass or complex lesion. There is normal arterial and normal venous vascularity. There is no fluid in the cul-de-sac. The pre void volume of the bladder was 450 ml. Polycystic ovary disease: No. US/Transvaginal Non- IMPRESSION: 8 mm endometrial thickness. Otherwise normal appearance of the postmenopausal female pelvis. Electronically Signed: Dae Fontenot MD at 21:57 EDT ,
== END 2021-12-29 23:59 | disposition home or self-care (01) ==
LOC: OPUS 12:33
PROVIDERS: PCP Family Medicine; Referring Provider Obstetrics & Gynecology; Visit Provider Obstetrics & Gynecology
DX: N93.9 Abnormal uterine and vaginal bleeding, unspecified (principal)
CPT/HCPCS: 76830; 76856

== ENCOUNTER 2022-01-24 13:40 | Outpatient (CLI) | payer MEDICARE, OTHER, SELFPAY ==
--- NOTE | 2022-01-24 13:42 | BI_ITS ---
MAMMOGRAPHY - BILATERAL SCREENING REASON FOR EXAM: Female, 71 years old. Routine annual screening examination. PERTINENT HISTORY: Non-contributory. TECHNIQUE: Digital bilateral breast matt (3D mammographic acquisition) in the CC and MLO projections. 2-D mediolateral oblique (MLO) and craniocaudad (CC) views of both breasts were obtained. CAD: Full Field Digital Mammography with Computer Added Detection was performed. COMPARISON: Comparison is made with prior study dated 02/03/2021 and 02/24/2019. FINDINGS: Breast Composition: The breasts are heterogeneously dense, which may obscure small masses. There are no dominant masses or suspicious calcifications. No other significant abnormalities are identified. There has been no significant change since the prior study. BI/SCRN MAMM (CAD)W/MATT BILAT IMPRESSION: Stable bilateral screening mammogram. Yearly follow-up mammogram recommended. (A) ASSESSMENT CATEGORY: Approximately 10% of breast cancers are not detected by mammography. A normal mammogram should not delay biopsy of a clinically suspicious abnormality. [id number] Electronically Signed: Kieran Chaudhry MD at 14:13 EDT ,
== END 2022-01-24 23:59 | disposition home or self-care (01) ==
LOC: OPBI 13:41
PROVIDERS: PCP Family Medicine; Visit Provider Obstetrics & Gynecology
DX: Z12.31 Encounter for screening mammogram for malignant neoplasm of breast (principal)
CPT/HCPCS: 77063; 77067

== ENCOUNTER → 2022-03-01 | Outpatient (CLI) | payer MEDICARE, OTHER, SELFPAY ==
--- NOTE | 2022-03-01 13:24 | EKG12_ITS ---
Test Reason : PREOP Blood Pressure : / mmHG Vent. Rate : 067 BPM Atrial Rate : 067 BPM P-R Int : 130 ms QRS Dur : 080 ms QT Int : 408 ms P-R-T Axes : 048 038 040 degrees QTc Int : 431 ms Normal sinus rhythm Low voltage QRS Nonspecific ST abnormality Abnormal ECG Confirmed by DENNIS QUINTANILLA, KARRI ([id number]), sound editor JANAY BHATT ([id number]) on 03/02/2022 10:37:00 A M Referred By: Sheri Lawson Confirmed By:AMELIA COLLINS MD
== END | disposition home or self-care (01) ==
LOC: PSN 13:22
PROVIDERS: PCP Family Medicine; Referring Provider Obstetrics & Gynecology; Visit Provider Obstetrics & Gynecology
DX: R94.31 Abnormal electrocardiogram [ECG] [EKG] (principal)
CPT/HCPCS: 93005

== ENCOUNTER 2022-03-06 12:37 | Day surgery (SDC) | payer MEDICARE, OTHER, SELFPAY ==
--- NOTE | 2022-03-05 16:45 | PCM.HP.BLA ---
History and Physical Date of Admission: 03/06/22 MR#:[id number]:[id number]: BALJIT YADAV #:[id number]:1950 Provider:Dr. 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 Is patient in pain?: No Allergies No Known Allergies Allergy (Verified 01/12/22 15:46) Medications alendronate 70 mg tablet 70 mg PO QWEEK 07/06/19 [History Confirmed 01/12/22] levothyroxine 25 mcg capsule 25 mcg PO DAILY 07/06/19 [History Confirmed 01/12/22] celecoxib 200 mg capsule 200 mg PO DAILY 12/07/20 [History Confirmed 01/12/22] umeclidinium 62.5 mcg-vilanterol 25 mcg/actuation powdr for inhalation 1 inh INHALATION Q24H #60 ea 08/30/21 [Rx Confirmed 01/12/22] progesterone micronized 200 mg capsule 200 mg PO QHS 12/21/21 [History Confirmed 01/12/22] Post menopausal: No Patient : No : No PFSH Medical History Acute bronchitis Appendicitis Arthritis Back pain COPD with exacerbation Fatigue Hemorrhoids Incontinence Knee pain Limb weakness Neck pain Thyroid disease Surgical History Cervical vertebral fusion History of appendectomy Family History Mother Cancer Sleep apnea Social History Smoking Status: Current every day smoker alcohol intake: current details: social substance use type: marijuana caffeine: Yes what type of physical activity do you participate in: none seatbelt use: always do you feel safe at home: Yes additional social history: HPI consult possible preop for D&C Details: BALJIT YADAV is a 71 year old who presents for discussion about Hysteroscopy D&C. EMB was performed last week for thickened endometrium and the sample was scant. I have recommended a hysteroscopy D&C to further evaluate the endometrium Pregancy History 2 Elective abortions 2 Hx Para 0 Spontaneous abortions Hx # Term Pregnancies Ectopic pregnancies Hx # Pregnancies Multiple births # of living children ROS Const ROS Unobtainable: All systems reviewed & are unremarkable except as noted in H Resp Resp: Reports system reviewed and no additional complaints, except as documented; Denies cough GI GI: Reports as per HPI Psych Psych: Reports system reviewed and no additional complaints, except as documented Exam Const General: cooperative, healthy appearing, comfortable and no acute distress Resp Effort & Inspection: normal respiratory effort Skin General: no rashes or lesions noted Psych Appearance: grossly normal Speech and Movement: speech and movement normal Coding Level of Care Code Off vis,est,level 4 Diagnoses Postmenopausal bleeding N95.0 Thickened endometrium R93.89 Assessment and Plan Assessment and Plan (1) Postmenopausal bleeding: Status: Acute (2) Thickened endometrium: Status: Acute Plan - Dr. Sheri Lawson DO: pt consents to hysteroscopy D&C After discussing the patient's diagnosis and treatment plan options, patient wishes to proceed with surgical management. I have discussed with the patient the risks, benefits, and alternatives of the procedure which include but are not limited to risks of anesthesia, bleeding, infection, possible damage to bowel, bladder, or surrounding vasculature which could lead to additional surgery to evaluate any complications. Patient agrees to procedure and wishes to proceed. ACOG/uptodate references given for additional information regarding procedure. Plan Details Other Orders: Orders: SCRN MAMM (CAD)W/MATT BILAT Today Z10.13 UPDATE- I have seen the patient and performed any clinically relevant updates to the history and physical exam. Sheri Lawson DO
[2022-03-06] VITALS (8 sets, daily range): BP systolic 65–129; BP diastolic 34–74; PULSE 54–80; RESP 12–18; TEMP 36.6–37.1; O2SAT 95–100; BMI 24.8
--- NOTE | 2022-03-06 | EMB_PTH ---
PATIENT: BALJIT YADAV LOC: [facility] [place] U#:[id number] AGE/SX: 72/F ROOM: RE03/06/[address]: Dr. Sheri Lawson DO : 1950 BED: DIS: 03/06/2022 SPEC #: [id number] RECD: 03/06/22 15:26 STATUS: MALATHI RIVERSBeth #: [id number] SWETHA: 03/06/22 00:[address]: Sheri Lawson DEPT: SURGICAL PATHOLOGY RECD BY: Immanuel Womack ENTERED: 03/07/22 11:52 SP TYPE: ENDOM BX/C OTHR DR: Dr. Radha Sykes MD Tissues: Endometrium, NOS Procedures: Surgery Specimen Level IV HEADER OPERATION: Hysteroscopy, dilation and curettage PRE-OP DIAGNOSIS: Postmenopausal bleeding, thickened endometrium TISSUE SUBMITTED: Endometrial curettings MICROSCOPIC DIAGNOSIS Endometrial curettings: A few fragments of endometrial tissue with simple cystic endometrial hyperplasia without atypia. See comment. DAVID:clifford 03/08/2022 COMMENT Please make reference to previous specimen ([id number]) endometrial biopsy with diagnosis of scant minute fragments of benign endometrial epithelium and numerous macrophages. Case has been reviewed in consultation with Dr. Johnson who concurs with the above diagnosis. IDC:AM MICROSCOPIC DESCRIPTION Slides are reviewed. GROSS DESCRIPTION Received in fixative is one container labeled with the patient's name and designated endometrial curettings. The specimen consists of multiple irregular fragments of pink soft tissue that in aggregate measure 1 x 0.1 x <0.1 cm. The specimen is totally submitted in one cassette. / DAVID:clifford 03/07/2022 TC:5 CPT: 88756
[2022-03-06] MEDS: Lactated Ringers 1,000 ML 15 ML IV (13:39)
--- NOTE | 2022-03-06 13:39 | PCM.DC ---
Discharge Instructions Diet Discharge Diet: No restrictions Activity Discharge Activity: Return to Normal Activity, May Shower and May Take a Tub Bath (after 1 week) May resume sexual activity in: 1-2 weeks Weight Bearing Status: Weight bearing as tolerated Lifting Restrictions: none Dressing / Incision Call your doctor if you observe: Fever of 101 or Higher, Using more than 1 pad per hour, Shortness of breath and Uncontrolled pain Follow Up Care Please Follow Up With: Sheri Lawson DO When: Call [phone] to schedule appointment. Test Results: Test results from this visit will be discussed in further detail at your follow-up appointment, if applicable. Discharge Plan Admission Primary Reason for Your Visit: hysteroscopy Dilation and curettage Attending Provider: Sheri Lawson Primary Care Provider: Radha Sykes Discharge Orders/Prescriptions Prescriptions: New ibuprofen 800 mg tablet 800 mg PO Q8H PRN (Reason: pain) 7 Days Qty: 30 RF: 0 oxycodone-acetaminophen [Percocet] 5-325 mg tablet 1 tab PO Q6H PRN (Reason: pain) 3 Days Qty: 5 RF: 0 Continued alendronate 70 mg tablet 70 mg PO QWEEK RF: 0 levothyroxine 25 mcg capsule 25 mcg capsule 25 mcg PO DAILY RF: 0 celecoxib [Celebrex] 200 mg capsule 200 mg PO DAILY RF: 0 albuterol sulfate [Ventolin HFA] 90 mcg/actuation HFA aerosol inhaler 2 puff inhalation Q4H PRN (Reason: shortness of breath or wheezing) Qty: 18 RF: 6 Anoro Ellipta 62.5-25 mcg/actuation blister with device 1 inh INHALATION Q24H Qty: 60 RF: 6 progesterone micronized 200 mg capsule 200 mg PO QHS RF: 0 Referrals / Follow Up: Radha Sykes MD [Primary Care Provider] - Disposition Disposition (needs filled in before D/C Order can be placed): Home, Self Care
[2022-03-06 13:48] LABS: Hematocrit 50.7 % (37-47); Hemoglobin 17.1 g/dL (12.0-15.0); Mean Corp Hgb Conc 33.7 g/dL (32-36); Mean Corpuscular Hgb 31.3 pg (27.0-32.0); Mean Corpuscular Volume 92.7 fL (81-99); Mean Platelet Vol. 11.5 fl (6.2-12.0); Platelet Count 205 K/mm3 (150-450); RBC Distribution Width CV 14.9 % (11.6-14.6); RBC Distribution Width SD 51.3 fl (35.1-43.9); Red Blood Count 5.47 M/mm3 (4.2-5.4); White Blood Count 9.5 K/mm3 (4.4-11.0)
[2022-03-06] MEDS: Lidocaine 1% (50 ml mdv) 50 ML Vial (14:06)
--- NOTE | 2022-03-06 14:23 | PCM.OPRPT ---
Problems Associated Problem List Diagnoses (1) Postmenopausal bleeding: (2) Thickened endometrium: Report of Operation Date of Procedure: 03/06/22 Pre-Operative Diagnosis: Thickened endometrium and postmenopausal bleeding, stenotic cervix in office Post-Operative Diagnosis: Thickened endometrium and postmenopausal bleeding, stenotic cervix Surgery/Procedure Performed:: Hysteroscopy, dilation and curettage Description of Surgical Findings:: stenotic cervix and normal appearing endometrium Surgeon: Sheri Lawson clinical exercise specialist: None Type of Anesthesia: MAC/Supplemental/Local Specimen's removed: endometrial biopsies Estimated Blood Loss (mL): 3cc Description of Procedure: Patient was prepped and draped in a normal sterile fashion under MAC anesthesia. A weighted speculum was placed in the vagina and the anterior lip of the cervix was grasped with a single-tooth tenaculum. A paracervical block was placed with 1% lidocaine. Cervix was progressively dilated to allow passage of a 5 mm hysteroscope, however was difficult due to stenosis to pass a curettage through. The lining was fully visualized and noted to have some mildly thickened tissue. No polyps were present. Instead of a curettage, random biopsies were taken with the hysteroscopic biopsy device x 7 in various places around the uterus. The small samples were then sent to pathology. All instruments were removed from the vagina and excellent hemostasis was noted. Patient was awoken and taken to recovery in stable condition. Complications none Admit VTE Documentation VTE Present on Admission: Yes VTE Mechan Device Prophylaxis: SCD's VTE Pharm Prophylaxis ordered?: Yes Reason prophylaxis not ordered:: Treatment Not Indicated Multi Select Codes Urinary/Genital Urinary/Genital CPT Codes: 53167 Hysteroscopy,EMC, Polypectomy
== END 2022-03-06 15:40 | disposition home or self-care (01) ==
LOC: SDC 12:38 → AC 12:40
PROVIDERS: PCP Family Medicine; Referring Provider Obstetrics & Gynecology; Visit Provider Obstetrics & Gynecology
PROC: 0UDB8ZZ Extraction of Endometrium, Via Natural or Artificial Opening Endoscopic (ICD-10-PCS; CPT 58558; principal; 2022-03-06 13:45)
DX: N95.0 Postmenopausal bleeding (principal); J44.9 Chronic obstructive pulmonary disease, unspecified; E03.9 Hypothyroidism, unspecified; F17.200 Nicotine dependence, unspecified, uncomplicated; N88.2 Stricture and stenosis of cervix uteri; G47.33 Obstructive sleep apnea (adult) (pediatric); M19.90 Unspecified osteoarthritis, unspecified site; R32 Unspecified urinary incontinence; Z79.899 Other long term (current) drug therapy; Z79.890 Hormone replacement therapy
CPT/HCPCS: 58558; 00952; 85027; 86850; 86900; 86901; 88305; J7120; J2405

== ENCOUNTER → 2022-07-03 | Outpatient (CLI) | payer MEDICARE, OTHER, SELFPAY ==
[2022-07-03 15:32] LABS: Mucous, Urine 0 SEEN /hpf (<or=2+)
[2022-07-03 15:46] LABS: Color, Urine Yellow (Yellow); Glucose, Dipstick Normal (Normal); Ketone-Dipstick Negative (Negative); Leukocyte Esterase-Dipstick 500 /ul (Negative); Nitrite-Dipstick Positive (Negative); Occult Blood-Urine 250 /ul (Negative); Protein-Dipstick 30 mg/dl (Negative); Urine Clarity Cloudy (Clear); Urine Urobilinogen 1 mg/dl (Normal)
[2022-07-03 15:51] LABS: Urine Bilirubin Dipstick 1 mg/dL (Negative)
[2022-07-03 16:02] LABS: Bacteria 2+ /hpf (None Seen); Red Blood Cells-Urine 10-25 SEEN /hpf (0-5); Squamous Epithelial Cells - UA 0-5 SEEN /hpf (5-10); White Blood Cells >100 SEEN /hpf (0-5)
== END | disposition home or self-care (01) ==
LOC: LABSPEC 15:12
PROVIDERS: PCP Family Medicine; Referring Provider Physician Assistant Surgical; Visit Provider Physician Assistant Surgical
DX: N39.0 Urinary tract infection, site not specified (principal)
CPT/HCPCS: 81001; 87086; 87088

== ENCOUNTER → 2022-07-17 | Outpatient (CLI) | payer MEDICARE, OTHER, SELFPAY ==
--- NOTE | 2022-07-17 14:29 | US_ITS ---
STUDY: ULTRASOUND TRANSVAGINAL CLINICAL: Female, 72 years old. Abnormal bleeding TECHNIQUE: Transvaginal COMPARISON: None. FINDINGS: Normal uterine size measuring 5.3 cm in maximal craniocaudal dimension. There are no myometrial masses. Normal endometrial thickness measuring 2.4 mm. There are no endometrial masses, and there is no fluid in the endometrial cavity. Normal uterine cervix. Normal right ovary, measuring 1.3 x 1.7 x 0.9 cm. There are multiple follicles without a dominant cyst. Normal left ovary, measuring 1.1 x 1.2 x 1.2 cm. There are multiple follicles without a dominant cyst. There is no free fluid in the pelvis. Polycystic ovary disease: No. US/Transvaginal Non- IMPRESSION: No suspicious sonographic findings Electronically Signed: Fred Perez MD at 15:47 EDT ,
== END | disposition home or self-care (01) ==
LOC: US 14:28
PROVIDERS: PCP Family Medicine; Referring Provider Obstetrics & Gynecology; Visit Provider Obstetrics & Gynecology
DX: N85.00 Endometrial hyperplasia, unspecified (principal)
CPT/HCPCS: 76830

== ENCOUNTER → 2022-09-26 | Outpatient (CLI) | payer MEDICARE, OTHER, SELFPAY ==
--- NOTE | 2022-09-26 14:15 | EMB_PTH ---
PATIENT: BALJIT YADAV LOC: [facility] U#:[id number] AGE/SX: 72/F ROOM: RE09/26/[address]: Dr. Sheri Lawson DO : 1950 BED: DIS: 09/26/2022 SPEC #: [id number] RECD: 09/26/22 15:35 STATUS: MALATHI YENIFER #: [id number] SWETHA: 09/26/22 14:[address]: Sheri Lawson DEPT: SURGICAL PATHOLOGY RECD BY: Cecelia Arechiga ENTERED: 09/27/22 08:43 SP TYPE: ENDOM BX/C MADY DR: Dr. Radha Sykes MD Tissues: Endometrium, NOS Procedures: Surgery Specimen Level IV HEADER OPERATION: Endometrial biopsy PRE-OP DIAGNOSIS: Endometrial hyperplasia TISSUE SUBMITTED: Endometrial lining MICROSCOPIC DIAGNOSIS Endometrial biopsy: Scant fragments of benign endometrial tissue. Negative for hyperplasia. See comment. SJ:clifford 09/28/2022 COMMENT Clinical correlation and appropriate follow up are necessary. Please make reference to previous specimens ([id number]) endometrial biopsy with diagnosis of ?scant minute fragments of benign endometrial epithelium and numerous macrophages? and ([id number]) endometrial curettings with diagnosis of ?a few fragments of endometrial tissue with simple cystic endometrial hyperplasia without atypia.? MICROSCOPIC DESCRIPTION Slides are reviewed. GROSS DESCRIPTION Received is one container labeled with the patient's name and not further designated. The specimen consists of multiple irregular fragments of hu mucoid tissue that in aggregate measure 2 x 0.5 x 0.1 cm. The specimen is totally submitted in one cassette. / Charmaine 09/27/2022 TC:4 CPT: 30326
== END | disposition home or self-care (01) ==
LOC: LABSPEC 15:44
PROVIDERS: PCP Family Medicine; Visit Provider Obstetrics & Gynecology
DX: N85.01 Benign endometrial hyperplasia (principal)
CPT/HCPCS: 88305

== ENCOUNTER → 2022-10-02 | Outpatient (CLI) | payer MEDICARE, OTHER, SELFPAY ==
[2022-10-02 18:42] LABS: T4 Total, Thyroxin 9.4 ug/dL (4.8-13.9); Thyroid Stim Hormone (TSH) 2.22 uIU/mL (0.358-3.74)
== END | disposition home or self-care (01) ==
LOC: MFPLAB 16:00
PROVIDERS: PCP Family Medicine; Referring Provider Family Medicine; Visit Provider Family Medicine
DX: E03.9 Hypothyroidism, unspecified (principal)
CPT/HCPCS: 36415; 84436; 84443

== ENCOUNTER → 2022-12-27 | Outpatient (CLI) | payer MEDICARE, OTHER, SELFPAY ==
--- NOTE | 2022-12-27 14:02 | CT_ITS ---
STUDY: LOW DOSE CT LUNG CANCER SCREENING REASON FOR EXAM: Female, 72 years old. Current smoker, one one half pack per day x50 years RADIATION DOSAGE (If Supplied By Facility): CTDIvol = ( 1.59 ) mGy, DLP = ( 52.61 ) mGycm TECHNIQUE: No contrast was administered. Low dose technique was utilized (average mAS-38 and kVp 120). 1.25 mm axial source images with a slice interval of 1.25-mm were reconstructed in lung windows. 2.5 mm axial source images with a slice interval of 2.5-mm were reconstructed in lung windows. 5.0 mm axial source images with a slice interval of 5.0-mm were reconstructed in soft tissue windows. COMPARISON: 12/26/2021 FINDINGS: Lung windows show underlying emphysema with chronic interstitial changes in both lung anderson. No organized infiltrate, effusion, or suspicious noncalcified mass or nodule. Limited soft tissues show normal-appearing thyroid gland. No suspicious axillary, mediastinal, or perihilar adenopathy. No CT evidence of thoracic aortic aneurysm. There are calcified coronary vessels. Bony structures show degenerative change. Limited cuts to the upper abdomen do not show suspicious abnormality No significant interval change since the previous study. CT/Low Dose CT Lung Screening IMPRESSION: Lung-RADS category 2 - Continue annual screening with LDCT in 12 months. IMPORTANT NOTES FOR USE: ACR Lung-RADS Version 1.1 Assessment Categories Release Date: 2018 Category: Coded 0-4 bases on nodule(s) with highest degree of suspicion. Negative screen is defined as categories 1 and 2; a positive screen is defined as categories 3 and 4. Category 3 and 4A nodules that are unchanged on interval CT should be coded as category 2, and individuals returned to screening in 12 months. Category 4X: Category 3 or 4 nodules with additional imaging findings that increase the suspicion of lung cancer, such as spiculation, GGN that doubles in size in 1 year, enlarged lymph notes, etc. Category Modifiers: S (significant finding unrelated to lung cancer) Electronically Signed: Fred Perez MD at 14:35 EDT ,
== END | disposition home or self-care (01) ==
LOC: CT 14:02
PROVIDERS: PCP Family Medicine; Referring Provider Nurse Practitioner Acute Care; Visit Provider Nurse Practitioner Acute Care
DX: F17.210 Nicotine dependence, cigarettes, uncomplicated (principal)
CPT/HCPCS: 71271

== ENCOUNTER 2023-01-27 13:41 | Emergency (ER) | payer MEDICARE, OTHER, SELFPAY ==
[2023-01-27 13:42] VITALS: BP 141/81; PULSE 86; RESP 18; TEMP 36.1; O2SAT 95; BMI 23.8
--- NOTE | 2023-01-27 14:02 | EDS_ITS ---
HPI History of Present Illness Chief Complaint: Back Narrative Narrative: 72-year-old female developed a left low back cramp last night before bed. When she woke up this morning she was much more stiff and it was hard to get up because movement makes the pain worse. She took Aleve with some improvement. She has no pain radiating into the buttock or lower extremities. No abdominal pain, nausea or vomiting, or bladder or bowel symptoms. She has a history of cervical fusion and remote traumatic lumbar spinous process fractures. She has had no recent falls. No bladder or bowel incontinence or saddle anesthesia. No weakness numbness or tingling. [facility] Medical History Acute bronchitis Alcohol use Appendicitis Arthritis Back pain Cancer COPD with exacerbation Fatigue Hemorrhoids Hypotension Incontinence Knee pain Leg cramps Limb weakness Marijuana use Neck pain Shortness of breath on exertion Smoker Status post hysteroscopy (~03/06/22) Thyroid disease Wears glasses Home Medications alendronate 70 mg tablet 70 mg PO QWEEK 07/06/19 [History Last Taken Unknown] levothyroxine 25 mcg capsule 25 mcg PO DAILY 07/06/19 [History Last Taken 03/06/22 08:00] celecoxib 200 mg capsule (Celebrex) 200 mg PO DAILY 12/07/20 [History Last Taken Unknown] albuterol sulfate 90 mcg/actuation aerosol inhaler (Ventolin HFA) 2 puff inhalation Q4H PRN shortness of breath or wheezing #18 grams 02/26/22 [Rx Last Taken 03/06/22 10:00] medroxyprogesterone 5 mg tablet 5 mg PO DAILY #30 tabs 06/07/22 [Rx Last Taken Unknown] umeclidinium 62.5 mcg-vilanterol 25 mcg/actuation powdr for inhalation (Anoro Ellipta) 1 inh inhalation Q24H #60 ea 11/19/22 [Rx Last Taken Unknown] calcium carb-ergocalciferol (vit D2) 500 mg-125 unit tablet tab PO 01/23/23 [History Last Taken Unknown] flaxseed oil 1,000 mg capsule 1,000 mg PO BID 01/23/23 [History Last Taken Unknown] glucosam-sod chondro-vit C-aide tablet tab PO 01/23/23 [History Last Taken Unknown] valacyclovir 500 mg tablet 500 mg PO DAILY PRN 01/23/23 [History Last Taken Unknown] vitamin B complex 1 tab PO DAILY 01/23/23 [History Last Taken Unknown] methocarbamol 500 mg tablet 500 mg PO Q8H #8 tabs 01/27/23 [Rx Last Taken Unknown] Allergy/AdvReac Type Severity Reaction Status Date / Time No Known Allergies Allergy Verified 01/27/23 13:43 Family History (Updated 01/23/23 @ 08:21 by Lilliana Olivera) Mother Sleep apnea Ovarian cancer Other Diabetes Surgical History Cervical vertebral fusion History of appendectomy Hx of colonoscopy Hx of left cataract extraction Hx of right cataract extraction Social History Smoking Status: Current every day smoker tobacco type: cigarettes alcohol intake: current details: social substance use type: marijuana caffeine: Yes what type of physical activity do you participate in: none seatbelt use: always do you feel safe at home: Yes additional social history: ROS ROS ED ROS Narrative Constitutional: Negative for fever, chills, malaise. CVS: Negative for chest pain. Respiratory: Negative for shortness of breath. GI: Negative for abdominal pain, nausea, vomiting, diarrhea, constipation, melena, hematochezia. : Negative for dysuria, hematuria or frequency. Neuro: Negative for motor/sensory dysfunction. Skin: Negative for rash. Musc: Negative for joint pain, swelling, trauma. EXAM Physical Exam Narrative Exam Narrative: CONST: Patient sitting in no acute distress. EYES: Normal inspection. NECK: Normal inspection. RESP: No respiratory distress, CTAB. CVS: Regular rate and rhythm, no murmur, no gallop. ABD: Soft and nontender, no guarding or rebound, nondistended. Back: Normal inspection, no CVA tenderness. Tender over left lumbar paraspinals, no midline tenderness or step-offs. SKIN: Color normal, no rash, warm, dry, intact. EXTREMITIES: Normal appearance, no pedal edema. 5/5 bilateral hip flexion, knee flexion/extension, DF/PF. Normal sensation, 2+ DP pulses. Normal gait. NEURO: Oriented x4. PSYCH: Normal affect. Const Vital Signs: 01/27/23 13:42 Temperature 97 F L Temperature Source Temporal Pulse Rate 86 Respiratory Rate 18 Blood Pressure 141/81 H Blood Pressure Mean 101 Pulse Ox 95 Oxygen Delivery Method Room Air MDM MDM MDM Narrative Medical decision making narrative: Patient has left lumbar back pain worse with movement. No injury. No other associated symptoms. She appears well and nontoxic with unremarkable vital signs. Normal heart and lung exam. No flank pain. She is reproducible left lower lumbar muscle pain. No midline tenderness or step-offs. Lower extremity MSPs and reflexes are intact. She has no red flag signs concerning for cauda equina or epidural abscess. She was treated with Toradol and Lidoderm patch with some improvement. I prescribed Robaxin and recommended she continue [id number] pain relievers and heat and ice. UA was also checked and is negative. I do not suspect a renal process as her pain is low and reproducible with movement and palpation. Patient was discharged in stable condition. Differential: Musculoskeletal back pain, low concern for fracture or renal pro cess such as kidney stone Tests considered but not ordered: I considered an x-ray but she has no midline spinal tenderness and no trauma Lab Data Attestation: I reviewed the patient's lab results. Labs: Laboratory Results - last 24 hr 01/27/23 14:20 Urine Color Yellow Urine Clarity Clear Urine pH 6.5 Ur Specific Kyle 1.010 Urine Protein Negative Urine Glucose (UA) Normal Urine Ketones Negative Urine Occult Blood Negative Urine Nitrite Negative Urine Bilirubin Negative Urine Urobilinogen Normal Ur Leukocyte Esterase Negative Urine RBC 0 SEEN Urine WBC 0 SEEN Ur Squamous Epith Cells 0-5 SEEN Urine Bacteria 0 SEEN Urine Mucus 0 SEEN Discharge Plan Triage Chief Complaint: Back ED Midlevel Provider: Gwen Steinberg ED Provider: Tito Casas Dx/Rx/DC Orders Clinical Impression: Acute lumbar back pain Instructions: Back Basics: A Healthy Spine Prescriptions: New methocarbamol 500 mg tablet 500 mg PO Q8H Qty: 8 0RF No Action alendronate 70 mg tablet 70 mg PO QWEEK levothyroxine 25 mcg capsule 25 mcg capsule 25 mcg PO DAILY celecoxib [Celebrex] 200 mg capsule 200 mg PO DAILY albuterol sulfate [Ventolin HFA] 90 mcg/actuation HFA aerosol inhaler 2 puff inhalation Q4H PRN (Reason: shortness of breath or wheezing) Qty: 18 6RF medroxyprogesterone 5 mg tablet 5 mg PO DAILY Qty: 30 12RF valacyclovir 500 mg tablet 500 mg PO DAILY PRN flaxseed oil 1,000 mg capsule 1,000 mg PO BID Rx Instructions: administer with meals vitamin B complex Tablet 1 tab PO DAILY glucosam-sod chondro-vit C-aide Tablet PO calcium carbonate-vitamin D2 500-125 mg-unit tablet PO Anoro Ellipta 62.5-25 mcg/actuation blister with device 1 inh INHALATION Q24H Qty: 60 6RF Primary Care Provider: Radha Sykes Referrals: Radha Sykes MD [Primary Care Provider] - Activity Restrictions/Additional Instructions: Use heat or ice and continue alternating Aleve and Tylenol as needed. I sent muscle relaxers to the pharmacy. Please follow-up with your primary care doctor if symptoms significantly worsen come back to the ER. Disposition Disposition: Home, Self Care Discharge Date/Time: 01/27/23 14:57
[2023-01-27] MEDS: Lidocaine 5% Patch 1 PATCH TOPICAL (14:16)
[2023-01-27] MEDS: Ketorolac 15 MG/ML Vial IM (14:16)
[2023-01-27 14:30] LABS: Bacteria 0 SEEN /hpf (None Seen); Mucous, Urine 0 SEEN /hpf (<or=2+); Red Blood Cells-Urine 0 SEEN /hpf (0-5); White Blood Cells 0 SEEN /hpf (0-5)
[2023-01-27 14:32] LABS: Color, Urine Yellow (Yellow); Glucose, Dipstick Normal (Normal); Ketone-Dipstick Negative (Negative); Leukocyte Esterase-Dipstick Negative /ul (Negative); Nitrite-Dipstick Negative (Negative); Occult Blood-Urine Negative /ul (Negative); Protein-Dipstick Negative (Negative); Urine Bilirubin Dipstick Negative (Negative); Urine Clarity Clear (Clear); Urine Urobilinogen Normal (Normal); Urine pH 6.5 (5.0 - 8.0)
[2023-01-27 14:37] LABS: Squamous Epithelial Cells - UA 0-5 SEEN /hpf (5-10)
== END 2023-01-27 14:57 | disposition home or self-care (01) ==
PROVIDERS: Physician Assistant; Emergency Provider Emergency Medicine; PCP Family Medicine; Visit Provider Emergency Medicine
DX: M54.50 Low back pain, unspecified (principal); J44.9 Chronic obstructive pulmonary disease, unspecified; F17.210 Nicotine dependence, cigarettes, uncomplicated
CPT/HCPCS: 81001; 96372; 99282

== ENCOUNTER → 2023-01-28 | Outpatient (CLI) | payer MEDICARE, OTHER, SELFPAY ==
--- NOTE | 2023-01-29 07:18 | PFT ---
INTRODUCTION: The patient is a 72-year-old female that presents for pulmonary function studies secondary to a diagnosis of COPD. Respiratory therapy reported good patient effort. Bronchodilators were used during testing. INTERPRETATION: Forced expiration spirometry demonstrates the presence of a moderately severe large airways obstructive ventilatory defect. There was no significant response to aerosolized bronchodilators. Spirograms are of good quality but do not plateau indicating slow emptying of the lungs. Body plethysmography was performed and revealed lung volumes to be within normal limits. Diffusing capacity by single breath CO was reduced at 44% of predicted. IMPRESSION: Irreversible moderately severe large airways obstructive ventilatory defect with symmetric reduction in diffusing capacity.
== END | disposition home or self-care (01) ==
LOC: PSN 10:51
PROVIDERS: PCP Family Medicine; Visit Provider Internal Medicine Critical Care Medicine
DX: J44.9 Chronic obstructive pulmonary disease, unspecified (principal)
CPT/HCPCS: 94060; 94726; 94729

== ENCOUNTER → 2023-01-31 | Outpatient (CLI) | payer MEDICARE, OTHER, SELFPAY ==
[2023-01-31 11:35] VITALS: PULSE 78; PULSE 81; PULSE 84; PULSE 88; PULSE 90; PULSE 93; O2SAT 90; O2SAT 91; O2SAT 92; O2SAT 94; O2SAT 96
--- NOTE | 2023-02-01 10:43 | WT_ITS ---
PSN 6 Minute Walk Test 6 Minute Walk Test 6 Minute Walk Test: 6 Minute Walk Test PSN:6-Minute Walk Test Start: 01/31/23 11:34 Freq: Status: Active Protocol: [id number] Document 01/31/23 11:35 EW (Rec: 01/31/23 11:36 EW [id number]) 6 Minute Walk Test Date Performed 01/31/23 Time Performed 11:15 Height 5 ft 2 in Weight: 135 lb Weight in Pounds 135.[address]: Tk Delgadillo Assistive device used: None Pre-test Oxygen Delivery Method Room Air Pulse Ox (%) 96 Pulse Rate (60-100 beats/min) 90 Dyspnea Geovanny Scale (0-10) 1 Exertion Geovanny Scale (6-20) 6 1st minute Oxygen Delivery Method Room Air Pulse Ox (%) 92 Pulse Rate (60-100 beats/min) 90 2nd minute Oxygen Delivery Method Room Air Pulse Ox (%) 94 Pulse Rate (60-100 beats/min) 78 3rd minute Oxygen Delivery Method Room Air Pulse Ox (%) 92 Pulse Rate (60-100 beats/min) 84 4th minute Oxygen Delivery Method Room Air Pulse Ox (%) 90 Pulse Rate (60-100 beats/min) 88 5th minute Oxygen Delivery Method Room Air Pulse Ox (%) 91 Pulse Rate (60-100 beats/min) 93 6th minute Oxygen Delivery Method Room Air Pulse Ox (%) 90 Pulse Rate (60-100 beats/min) 93 Post-test Oxygen Delivery Method Room Air Pulse Ox (%) 92 Pulse Rate (60-100 beats/min) 81 Dyspnea Geovanny Scale (0-10) 1 Exertion Geovanny Scale (6-20) 13 Full Laps Walked 16 Partial Lap, Number of Tiles Walked 0 Total Distance Walked (ft) 944 Interpretation Interpretation: The patient ambulated 944 feet over the course of 6 minutes beginning on room air without assistive devices. Pretesting oxygen saturation was noted to be 96% on room air. With ambulation, the aime oxygen saturation was 90%. This repres ents a significant exertional oxygen desaturation, consistent with a pulmonary limitation to exercise tolerance. Recommendations Recommendations: There is no indication for the use of supplemental oxygen at this time. However, close interval follow-up is recommended, given the degree of oxygen desaturation noted during this study.
== END | disposition home or self-care (01) ==
LOC: PSN 11:14
PROVIDERS: PCP Family Medicine; Referring Provider Internal Medicine Critical Care Medicine; Visit Provider Internal Medicine Critical Care Medicine
DX: J44.9 Chronic obstructive pulmonary disease, unspecified (principal)
CPT/HCPCS: 94618

== ENCOUNTER → 2023-02-26 | Outpatient (CLI) | payer MEDICARE, OTHER, SELFPAY ==
[2023-02-26 11:23] LABS: Absolute Lymphocyte Count 1.82 X10^3/uL (0.83-4.51); Absolute Neutrophil Count 5.5 X10^3/uL (2.0-7.7); Basophil# 0.09 X10^3/uL; Basophil% 0.9 % (0-1); Eosinophil# 1.53 X10^3/uL; Hematocrit 50.6 % (37-47); Hemoglobin 16.7 g/dL (12.0-15.0); Lymphocyte # 1.82 X10^3/ul (0.83-4.51); Mean Corpuscular Hgb 30.9 pg (27.0-32.0); Mean Corpuscular Volume 93.5 fL (81-99); Mean Platelet Vol. 11.9 fl (6.2-12.0); Monocyte# 0.61 X10^3/uL; Monocyte% 6.4 % (0-10); NRBC Flagged by Analyzer 0 % (0-5); Neutrophil % 57.4 % (47-70); Platelet Count 174 K/mm3 (150-450); RBC Distribution Width CV 14.7 % (11.6-14.6); RBC Distribution Width SD 50.7 fl (35.1-43.9); Red Blood Count 5.41 M/mm3 (4.2-5.4); White Blood Count 9.6 K/mm3 (4.4-11.0)
[2023-02-26 12:15] LABS: AST(SGOT) 18 U/L (15-37); Alanine Aminotransfer ALT/SGPT 22 U/L (13-56); Albumin, Serum 3.5 g/dL (3.2-5.0); Alkaline Phosphatase 55 U/L (45-117); Anion Gap 6 (5-15); BUN 10 mg/dL (7-18); Bilirubin, Direct 0.13 mg/dL (0.00-0.30); Calcium,Total 9.1 mg/dL (8.5-10.1); Chloride 105 mmol/L (98-107); Cholesterol 178 mg/dL (200); Creatinine, Serum 0.77 mg/dL (0.55-1.02); EST Glomerular Filtration Rate 78 mL/min (>60); Est Glom Filt Rate - Afr Amer 94 mL/min (>60); Globulin 3.6 g/dL (2.2-4.2); Glucose 86 mg/dL (74-106); High Density Lipoprotein 45 mg/dL; Potassium 4.1 mmol/L (3.5-5.1); Protein, Total 7.1 g/dL (6.4-8.2); Sodium Level 142 mmol/L (136-145); Triglycerides 78 mg/dL; Very Low Density Lipoprotein 16 mg/dL (5-40)
== END | disposition home or self-care (01) ==
LOC: LAB 10:06
PROVIDERS: PCP Family Medicine; Referring Provider Internal Medicine Cardiovascular Disease; Visit Provider Internal Medicine Cardiovascular Disease
DX: R07.9 Chest pain, unspecified (principal); R53.83 Other fatigue
CPT/HCPCS: 36415; 80048; 80061; 80076; 85025

== ENCOUNTER 2023-03-08 07:26 | Day surgery (SDC) | payer MEDICARE, OTHER, SELFPAY ==
[2023-03-07 07:45] VITALS: BMI 23.8
--- NOTE | 2023-03-08 10:22 | CL.D_ITS ---
Patient Name: BALJIT YADAV Study Date: 03/08/2023 Performing: Austen Bullard MD Ht: 62 inches 157.48 cm : 1950 Wt: 130.01 lbs 58.97 kg Age: 73 Gender: female BSA: 1.59 PROCEDURE(S) PERFORMED DC01-([id number])LHC/COR/LV CLINICAL PROFILE AND INDICATIONS Indications: Suspected CAD Heart Failure: None Stress/Imaging Stress/Image Study Performed: No CAD Presentations: Stable angina. CONCLUSIONS Non obstructive coronary arteries RECOMMENDATIONS Medical therapy DESCRIPTION OF PROCEDURE The patient arrived to the procedure lab. The risks and benefits of the procedure as well as a full description of our services here and current unavailability of surgical backup were fully explained to the patient and/or their significant other prior to the catheterization. The Timeout was completed, verifying the correct patient and procedure. The patient's procedural site was prepped and draped in the usual fashion. Local anesthetic was given subcutaneously to right radial region with Lidocaine 2%. Using a modified Seldinger technique, arterial access was obtained via the right radial artery, a 6Fr sheath was inserted. Left Coronary Artery selective angiography was performed in multiple views using a 5 Fr. 4.0 Gardner catheter. Right Coronary Artery selective angiography was then performed in multiple views using a 5 Fr. 4.0 Gardner catheter. Left Ventriculography was performed in [place] projection using a 5 Fr. Pigtail catheter. LV to AO pullback pressures were then recorded.The arterial sheath was pulled and a TR Band was applied for hemostasis CORONARY ANGIOGRAPHY DOMINANCE: Right Dominant LEFT HEART ASSESSMENT Left Ventricular Ejection Fraction: by LV Gram 60 % Normal LV wall motion Normal Left Ventricular systolic function LEFT MAIN: Mild calcification, Angiographically normal LEFT ANTERIOR DESCENDING ARTERY: Mild luminal irregularities CIRCUMFLEX ARTERY: Mild luminal irregularities RIGHT CORONARY ARTERY: Mild luminal irregularities COMPLICATIONS No Complications PROCEDURE MEDICATIONS Fentanyl 50 mcg IV Versed 1 mg IV Versed 1 mg IV Oxygen: 2 L/min via nasal cannula Baby Aspirin (81mg) 1 Tabs PO @ 03/08/2023 08:12:39 SUMMARY OF HEMODYNAMIC DATA Time AIR REST ECG 08:11:42 AO 111/61 (82) SA 10:12:29 LV 98/5, 10 10:16:24 LV 99/6, 11 10:16:30 LV 94/5, 11 10:17:02 LV 97/6, 13 10:17:08 LV 98/3, 11 10:17:15 AO 111/0 (77) 10:17:20 Signed By Austen Bullard MD On 03/08/2023 10:22:00 Austen Bullard MD
== END 2023-03-08 11:50 | disposition home or self-care (01) ==
LOC: CLSP 07:27
PROVIDERS: PCP Family Medicine; Visit Provider Internal Medicine Cardiovascular Disease
DX: I25.119 Atherosclerotic heart disease of native coronary artery with unspecified angina pectoris (principal); J44.9 Chronic obstructive pulmonary disease, unspecified; E03.9 Hypothyroidism, unspecified; F17.210 Nicotine dependence, cigarettes, uncomplicated; Z79.890 Hormone replacement therapy
CPT/HCPCS: 93458; 99152; 99153; J7040; C1769; C1894; Q9967

== ENCOUNTER 2023-04-09 11:04 | Day surgery (SDC) | payer MEDICARE, OTHER, SELFPAY ==
[2023-04-09 11:28] VITALS: BP 120/57; PULSE 80; RESP 16; TEMP 36; O2SAT 95; BMI 22.9
[2023-04-09] MEDS: Lactated Ringers 1,000 ML 15 ML IV (11:30)
--- NOTE | 2023-04-09 11:32 | PCM.HP.STD ---
HPI - General General Chief Complaint: Screening colonoscopy HPI Narrative BALJIT YADAV, is a 73 F who presents today for screening colonoscopy. She has a past medical history of obstructive sleep apnea, COPD, hypothyroidism who arrives here for screening colonoscopy. She had a colonoscopy approximately 10 years ago and it was normal. She does not have any problems with her bowels. She does not have any nausea, vomiting or diarrhea. She denies any change in the color of stools or caliber stools. [facility] Medical History (Updated 04/04/23 @ 12:30 by Alida Allan) Acute bronchitis Alcohol use Appendicitis Arthritis Back pain Cancer Cardiology follow-up encounter COPD with exacerbation Dyspnea on exertion Endometrial hyperplasia Fatigue Hemorrhoids Herpes genitalis History of edema Hypotension Hypothyroid Incontinence Knee pain Leg cramps Limb weakness Marijuana use Neck pain Osteopenia Restless legs Rosacea Shortness of breath on exertion Smoker Status post hysteroscopy (~03/06/22) Thyroid disease Wears glasses Home Medications alendronate 70 mg tablet 70 mg PO QWEEK 07/06/19 [History Last Taken Unknown] albuterol sulfate 90 mcg/actuation aerosol inhaler (Ventolin HFA) 2 puff inhalation Q4H PRN shortness of breath or wheezing #18 grams 02/26/22 [Rx Last Taken 03/06/22 10:00] umeclidinium 62.5 mcg-vilanterol 25 mcg/actuation powdr for inhalation (Anoro Ellipta) 1 inh inhalation Q24H #60 ea 11/19/22 [Rx Last Taken 04/09/23] flaxseed oil 1,000 mg capsule 1,000 mg PO BID 01/23/23 [History Last Taken Unknown] glucosam-sod chondro-vit C-aide tablet 1 tab PO DAILY 01/23/23 [History Last Taken Unknown] valacyclovir 500 mg tablet 500 mg PO PRN PRN HERPES 01/23/23 [History Last Taken Unknown] vitamin B complex 1 tab PO DAILY 01/23/23 [History Last Taken Unknown] aspirin 81 mg tablet,delayed release (Adult Low Dose Aspirin) 81 mg PO DAILY 02/26/23 [History Last Taken 04/07/23] calcium citrate 315 mg calcium-vitamin D3 6.25 mcg (250 unit) tablet (Citracal + Vitamin D Maximum) 1 tab PO DAILY 02/26/23 [History Last Taken Unknown] fluorometholone 0.1 % eye drops,suspension 1 drp ophthalmic (eye) DAILY 02/26/23 [History Last Taken Unknown] ibuprofen 200 mg tablet 400 mg PO Q4H PRN Pain 02/26/23 [History Last Taken Unknown] levothyroxine 25 mcg tablet 25 mcg PO DAILY 02/26/23 [History Last Taken Unknown] vitamin A palmitate 10,000 unit-ergocalciferol (D2) 400 unit tablet 1 tab PO DAILY 04/04/23 [History Last Taken Unknown] Allergy/AdvReac Type Severity Reaction Status Date / Time No Known Allergies Allergy Verified 04/09/23 11:21 Family History Mother Sleep apnea Ovarian cancer Father Diabetes Aunt Diabetes Surgical History (Updated 04/04/23 @ 12:30 by Alida Allan) Cervical vertebral fusion History of appendectomy History of cardiac catheterization Hx of colonoscopy Hx of left cataract extraction Hx of right cataract extraction Social History Smoking Status: Current every day smoker tobacco type: cigarettes alcohol intake: current alcohol intake frequency: a few times a week Alcohol type: wine and hard liquor substance use type: does not use caffeine: Yes Type: coffee Number of servings: 5 what type of physical activity do you participate in: none seatbelt use: always do you feel safe at home: Yes additional social history: ROS Review of Systems ROS Unobtainable: other Constitutional Constitutional: Denies fatigue, fever(s), poor appetite, weight gain or weight loss ENT HEENT: Denies mouth lesions Cardiovascular Cardiovascular: Denies abdominal bloating, abdominal edema or abdominal pain Respiratory/Chest Respiratory/Chest: Denies change in mental status, change in phlegm color, chest congestion or chest tightness Gastrointestinal Gastrointestinal: Denies belching, bloating, change in bowel habits, change in stool character, chewing difficulty, coffee ground emesis, constipation, cramping, diarrhea, dyspepsia, dysphagia, early satiety, excessive flatus, fecal incontinence, heartburn, hematemesis, hematochezia, hemorrhoids, loose stools, melena, nausea, odynophagia, rectal bleeding, tenesmus, vomiting or weight changes Genitourinary Genitourinary: Denies abdominal discomfort, burning urination or itching Musculoskeletal Musculoskeletal: Reports as per HPI; Denies muscle weakness or myalgias Integumentary Integumentary: Denies jaundice Neurologic Neurologic: Denies lack of coordination or weakness Psychiatric Psychiatric: Denies confusion, depression, memory loss, mood swings, paranoia or suicidal ideation Endocrine Endocrinology: Denies systems reviewed and no addt'l complaints, except as documented Hematologic/Lymphatic Hematologic/Lymphatic: Denies anemia, easy bleeding, easy bruising or lymphadenopathy Allergic/Immunologic Allergic/Immunologic: Denies systems reviewed and no addt'l complaints, except as documented Vital Signs Vital Signs Vital Signs: 04/09/23 11:28 04/09/23 11:28 Temperature 96.8 F L Temperature Source Temporal Pulse Rate 80 Respiratory Rate 16 Respiratory Pattern Normal Blood Pressure 120/57 L Blood Pressure Mean 78 Blood Pressure Source Monitor Blood Pressure Position Semi-Fowlers Blood Pressure Location Left Arm Pulse Ox 95 Oxygen Delivery Method Room Air Weight Weight: 125 lb 7.088 oz Body Mass Index (BMI) 22.9 Physical Exam Const alert General Appearance: cooperative Orientation / Consciousness: oriented to person HEENT hearing grossly normal bilaterally Head and Scalp: normal to inspection Face and Sinus: face symmetric Nose: external nose normal Mouth: oral and palatal mucosa normal Eyes conjunctivae normal General Eye: normal appearance of both eyes Neck full ROM General: normal visual inspection Lymph Lymphatic: no lymphadenopathy noted Chest inspection of chest normal and palpation of chest normal Chest: symmetrical chest wall rise Resp normal respiratory effort Effort and Inspection: able to speak in complete sentences Cardio regular rate GI non-distended Percussion: normal to percussion Rectal Exam: deferred Neuro Speech: speech normal Gait (Neuro): normal gait Assessment & Plan Assessment/Plan (1) Encounter for screening for malignant neoplasm of colon: PLAN: 73-year-old comes in for screening colonoscopy. She was explained alternatives, risk, benefits including not withstanding bleeding, infection, sepsis, perforation, need for emergent surgery . She will have an ASA of 2.
--- NOTE | 2023-04-09 12:29 | OP.COLON_ITS ---
Patient Name: Cherie Elaine Procedure Date: 04/09/2023 11:46 AM Date of : 1950 Age: 73 Procedure: Colonoscopy Indications: Screening for colorectal malignant neoplasm Providers: Wilmer Palacios DO Referring MD: Wilmer Palacios DO Medicines: Monitored Anesthesia Care Patient Profile: This is a 73 year old female. Refer to note in patient chart for documentation of history and physical. Last Colonoscopy: more than 10 years ago. Complications: No immediate complications. Procedure: Pre-Anesthesia Assessment: - Prior to the procedure, a History and Physical was performed, and patient medications and allergies were reviewed. The patient is competent. The risks and benefits of the procedure and the sedation options and risks were discussed with the patient. All questions were answered and informed consent was obtained. Patient identification and proposed procedure were verified by the physician in the pre-procedure area. Mental Status Examination: alert and oriented. Airway Examination: normal oropharyngeal airway and neck mobility. Respiratory Examination: clear to auscultation. CV Examination: normal. Prophylactic Antibiotics: The patient does not require prophylactic antibiotics. Prior Anticoagulants: The patient has taken no previous anticoagulant or antiplatelet agents. After reviewing the risks and benefits, the patient was deemed in satisfactory condition to undergo the procedure. The anesthesia plan was to use monitored anesthesia care (MAC). Immediately prior to administration of medications, the patient was re-assessed for adequacy to receive sedatives. The heart rate, respiratory rate, oxygen saturations, blood pressure, adequacy of pulmonary ventilation, and response to care were monitored throughout the procedure. The physical status of the patient was re-assessed after the procedure. After I obtained informed consent, the scope was passed under direct vision. Throughout the procedure, the patient's blood pressure, pulse, and oxygen saturations were monitored continuously. The was introduced through the anus and advanced to the cecum, identified by appendiceal orifice and ileocecal valve. The colonoscopy was performed without difficulty. The patient tolerated the procedure well. The quality of the bowel preparation was adequate. Scope In: 12:10:03 PM Scope Withdrawal Time 0 hours 9 minutes 14 seconds Scope Out: 12:22:46 PM Total Procedure Duration Time 0 hours 12 minutes 43 seconds Findings: The perianal and digital rectal examinations were normal. A few small and large-mouthed diverticula were found in the recto-sigmoid colon, sigmoid colon and transverse colon. No additional abnormalities were found on retroflexion. Impression: - Diverticulosis in the recto-sigmoid colon, in the sigmoid colon and in the transverse colon. - No specimens collected. Recommendation: - Discharge patient to home. - Resume previous diet. - Continue present medications. - Repeat colonoscopy in 10 years for screening purposes. Procedure Code(s): --- Professional --- G0121, Colorectal cancer screening; colonoscopy on individual not meeting criteria for high risk CPT copyright 2017 [employer]. All rights reserved. The codes documented in this report are preliminary and upon laser beam trim operator review may be revised to meet current compliance requirements. Wilmer Palacios DO 04/09/2023 12:29:00 PM This report has been signed electronically. Number of Addenda: 0 Note Initiated On: 04/09/2023 11:46 AM
[2023-04-09 12:30] VITALS: BP 120/57; BP 76/57; PULSE 82; RESP 16; TEMP 36.3; O2SAT 99
--- NOTE | 2023-04-09 12:30 | OP.CCLET_ITS ---
04/09/2023 Radha Sykes [address] [place] [address] Re : Colonoscopy procedure for Cherie Elaine Dear Dr. Sykes This procedure was performed on Sunday, April 09, 2023. My impressions and recommendations are as follows: Impressions : - Diverticulosis in the recto-sigmoid colon, in the sigmoid colon and in the transverse colon. - No specimens collected. Recommendations : - Discharge patient to home. - Resume previous diet. - Continue present medications. - Repeat colonoscopy in 10 years for screening purposes. My findings are described in the full procedure note, which is enclosed. If I can be of further assistance, please feel free to contact me at . Sincerely, Wilmer Palacios, 04/09/2023 12:29:00 PM This report has been signed electronically.
[2023-04-09 12:35] VITALS: BP 120/57; BP 95/49; PULSE 75; RESP 16; O2SAT 100
[2023-04-09 12:40] VITALS: BP 110/51; BP 120/57; PULSE 70; RESP 16; O2SAT 99
[2023-04-09 12:45] VITALS: BP 102/44; BP 120/57; PULSE 68; RESP 16; TEMP 36.3; O2SAT 99
[2023-04-09 12:57] VITALS: BP 120/57
== END 2023-04-09 13:10 | disposition home or self-care (01) ==
LOC: EN 11:05 → AC 11:08
PROVIDERS: PCP Family Medicine; Referring Provider Family Medicine; Visit Provider Internal Medicine Gastroenterology
PROC: 0DJD8ZZ Inspection of Lower Intestinal Tract, Via Natural or Artificial Opening Endoscopic (ICD-10-PCS; CPT 45378; principal; 2023-04-09 11:55)
DX: Z12.11 Encounter for screening for malignant neoplasm of colon (principal); J44.9 Chronic obstructive pulmonary disease, unspecified; K57.30 Diverticulosis of large intestine without perforation or abscess without bleeding; F17.210 Nicotine dependence, cigarettes, uncomplicated; E03.9 Hypothyroidism, unspecified; K64.9 Unspecified hemorrhoids; Z79.82 Long term (current) use of aspirin; Z79.890 Hormone replacement therapy
CPT/HCPCS: G0121; J7120

== ENCOUNTER → 2023-05-09 | Outpatient (CLI) | payer MEDICARE, OTHER, SELFPAY ==
--- NOTE | 2023-05-09 15:22 | BI_ITS ---
MAMMOGRAPHY - BILATERAL SCREENING REASON FOR EXAM: Female, 73 years old. Routine annual screening examination. PERTINENT HISTORY: Non-contributory. TECHNIQUE: Digital bilateral breast matt (3D mammographic acquisition) in the CC and MLO projections. 2-D mediolateral oblique (MLO) and craniocaudad (CC) views of both breasts were obtained. CAD: Full Field Digital Mammography with Computer Added Detection was performed. COMPARISON: Comparison is made with prior study dated January 24, 2022 and February 03, 2021. FINDINGS: Breast Composition: The breasts are heterogeneously dense, which may obscure small masses. There are no dominant masses or suspicious calcifications. No other significant abnormalities are identified. There has been no significant change since the prior study. BI/SCRN MAMM (CAD)W/MATT BILAT IMPRESSION: Stable bilateral screening mammogram. Yearly follow-up mammogram recommended. (A) ASSESSMENT CATEGORY: BIRADS Category 1: Negative. A letter regarding these results will be sent to the patient by the facility within 30 days. Approximately 10% of breast cancers are not detected by mammography. A normal mammogram should not delay biopsy of a clinically suspicious abnormality. [id number] Electronically Signed: Kieran Chaudhry MD at 8:35 EDT ,
--- NOTE | 2023-05-09 15:45 | BD_ITS ---
STUDY: DUAL ENERGY X-RAY ABSORPTIOMETRY / DXA REASON FOR EXAM: Female, 73 years old. [id number] TECHNIQUE: Bone Mineral Density (BMD) measurements of lumbar spine and bilateral hips were obtained. COMPARISON: Comparison is made with prior study dated February 24, 2019. FINDINGS: Lumbar Spine (L1-L4): g/cm2 (0.945) / T-score (-0.8) / Z-score (1.5) Findings are suggestive of normal bone density with a low fracture risk. Left Femur Total: g/cm2 (0.741) / T-score (-1.7) / Z-score (0.1) Left Femoral Neck: g/cm2 (0.607) / T-score (-2.2) / Z-score (-0.1) Right Femur Total: g/cm2 (0.676) / T-score (-2.2) / Z-score (-0.4) Right Femoral Neck: g/cm2 (0.6-2) / T-score (-2.0) / Z-score (0.0) The T-Scores on the most recent prior examination were: Lumbar Spine (L1-L4): There has been improvement of bone density since the previous examination. Left Femur Total: which represents an improvement of 16.4%. Right Femur Total: which represents an improvement of 8.8%. BD/Dexa Bone Density Study IMPRESSION: The patient is considered osteopenic as outlined below according to World Tacho Organization (WHO) criteria with a high fracture risk. There has been improvement of bone density since the previous examination. Reference Information: The T-score is the number of standard deviations above or below the standard which is normal for young adults at their peak bone mineral density. The World Health Organization (WHO) interprets the T-scores as follows: Above -1 Normal bone density Between -1 and -2.5 Osteopenia Equal to / or below -2.5 Osteoporosis As a practical clinical guideline, osteopenia may be graded as follows: Mild -1 through -1.5 Moderate -1.6 through -2.0 Severe -2.1 through -2.4 The Z-score is the number of standard deviations above or below age-matched controls. A Z-score of less than -1.5 would be considered abnormal. References: 1. NIH Osteoporosis and Related Bone Diseases www osteo.org 2. International Society for Clinical Densitometry www iscd.org 3. National Osteoporosis Foundation www nof.org Electronically Signed: Kieran Chaudhry MD at 14:17 EDT ,
== END | disposition home or self-care (01) ==
LOC: OPBD 15:20
PROVIDERS: PCP Family Medicine; Referring Provider Family Medicine; Visit Provider Family Medicine
DX: Z12.31 Encounter for screening mammogram for malignant neoplasm of breast (principal); N95.9 Unspecified menopausal and perimenopausal disorder
CPT/HCPCS: 77063; 77067; 77080

== ENCOUNTER → 2023-06-10 | Outpatient (CLI) | payer MEDICARE, OTHER, SELFPAY ==
[2023-06-10 18:03] LABS: Absolute Lymphocyte Count 1.91 X10^3/uL (0.83-4.51); Absolute Neutrophil Count 5.9 X10^3/uL (2.0-7.7); Basophil# 0.06 X10^3/uL; Basophil% 0.7 % (0-1); Eosinophils% 2.3 % (0-5); Hematocrit 49.6 % (37-47); Lymphocyte # 1.91 X10^3/ul (0.83-4.51); Lymphocyte % 21.9 % (19-41); Mean Corp Hgb Conc 32.3 g/dL (32-36); Mean Corpuscular Hgb 30.6 pg (27.0-32.0); Mean Corpuscular Volume 94.8 fL (81-99); Mean Platelet Vol. 11.8 fl (6.2-12.0); Monocyte# 0.62 X10^3/uL; Monocyte% 7.1 % (0-10); NRBC Flagged by Analyzer 0 % (0-5); Neutrophil # 5.92 X10^3/uL (2.7-7.7); Neutrophil % 67.7 % (47-70); Platelet Count 175 K/mm3 (150-450); RBC Distribution Width CV 14.6 % (11.6-14.6); RBC Distribution Width SD 50.9 fl (35.1-43.9); Red Blood Count 5.23 M/mm3 (4.2-5.4); White Blood Count 8.7 K/mm3 (4.4-11.0)
[2023-06-10 18:16] LABS: Erythrocyte Sedimentation Rate 5 mm/hr (0-30)
[2023-06-10 18:55] LABS: ALB/GLOB Ratio 0.9 RATIO (0.9-2.4); AST(SGOT) 16 U/L (15-37); Alanine Aminotransfer ALT/SGPT 24 U/L (13-56); Albumin, Serum 3.4 g/dL (3.2-5.0); Alkaline Phosphatase 55 U/L (45-117); Anion Gap 6 (5-15); BUN 10 mg/dL (7-18); BUN/Creat Ratio 12.1 RATIO (10-20); Chloride 106 mmol/L (98-107); Creatinine, Serum 0.82 mg/dL (0.55-1.02); EST Glomerular Filtration Rate 72 mL/min (>60); Est Glom Filt Rate - Afr Amer 87 mL/min (>60); Globulin 3.7 g/dL (2.2-4.2); Glucose 72 mg/dL (74-106); Potassium 3.8 mmol/L (3.5-5.1); Protein, Total 7.1 g/dL (6.4-8.2); Sodium Level 141 mmol/L (136-145); Thyroid Stim Hormone (TSH) 3.05 uIU/mL (0.358-3.74)
[2023-06-12 04:07] LABS: Cancer Antigen 125 4.8 U/mL (0.0-38.1); Carcinoembryonic Antigen 3.1 ng/mL (0.0-4.7)
== END | disposition home or self-care (01) ==
PROVIDERS: PCP Family Medicine; Referring Provider Family Medicine; Visit Provider Family Medicine
DX: R63.4 Abnormal weight loss (principal); Z80.41 Family history of malignant neoplasm of ovary
CPT/HCPCS: 36415; 80053; 82378; 84443; 85025; 85652; 86304

== ENCOUNTER → 2023-08-16 | Outpatient (CLI) | payer MEDICARE, OTHER, SELFPAY ==
[2023-08-16 15:49] LABS: Free T3 2.3 pg/mL (2.18-3.98); T4 Free Direct 1.13 ng/dL (0.76-1.46)
[2023-08-16 16:02] LABS: Vitamin D,25 Hydroxy 135.8 ng/mL
[2023-08-19 14:08] LABS: PROEL- A/G Ratio 1.4 (0.7-1.7); PROEL- Albumin 3.8 g/dL (2.9-4.4); PROEL- Alpha-1 Globulin 0.2 g/dL (0.0-0.4); PROEL- Alpha-2 Globulin 0.6 g/dL (0.4-1.0); PROEL- Beta Globulin 0.9 g/dL (0.7-1.3); PROEL- Globulin, Total 2.7 g/dL (2.2-3.9); PROEL- TOTAL PROTEIN 6.5 g/dL (6.0-8.5); PROEL-M-Spike Not Observed g/dL (Not Observed); Thyroid Peroxidase AB 26 IU/mL (0-34)
[2023-08-20 13:07] LABS: ANTINUCLEAR ANTIBODIES DIRECT Negative (Negative); Vitamin D 1,25-Dihydroxy 45.1 pg/mL (24.8-81.5)
[2023-08-21 16:09] LABS: Anti-Nuclear Antibody Test Positive (.)
== END | disposition home or self-care (01) ==
LOC: MTLAB 13:37
PROVIDERS: PCP Family Medicine; Referring Provider Physician Assistant Medical; Visit Provider Physician Assistant Medical
DX: R63.4 Abnormal weight loss (principal)
CPT/HCPCS: 36415; 82306; 82652; 84165; 84439; 84481; 86038; 86376

== ENCOUNTER 2023-12-25 13:00 | Outpatient (RCR) | payer MEDICARE, OTHER, SELFPAY ==
--- NOTE | 2023-12-04 15:03 | HP.PTEVAL_ITS ---
Patient's Visit Information Visit Information Visit Information: BALJIT YADAV is a 73 year old F referred to Physical Therapy by Dr. Last Childs DPM with a diagnosis of Achilles tendonitis, PFitis R. Date of Evaluation: 12/04/23 Physical Therapist: Dawit Ly, ORESTES, OCS, CSCS Visit Plan Frequency: 3x /Week Duration: 4-6 Weeks Plan: 3x/week for 3-6 weeks 1/ STM to PF and gastroc soleus R with MH 2. PROM ankle and mobs grade 4 PF/DF with aggressive gastroc /soleus stretch 3/ ankle strength TB and proprioception once feeling better. Subjective Subjective: R foot hurts in heal and under heal mostly on back of foot. It has hurt for weeks without official reason. it wakes her up in the middle of the night. 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 She can can walk it off. Wakes her up often. Hurts for a bit but she can walk it off. Hurts in the am. for 30 minutes. Does not hurt much of day but hurts again in the evening. Pressure from foot rest hurts. Not employed. 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 Activities ADLS are normal but hurts often. Pain R achilles area.: Pain Intensity (Out of 10): 1 Pain Intensity Range: 0 and 6 Comment: waking up Objective Objective: Short steps into PT, no limping today, I gait. Transfers I bed and chair. Sensation LE WNL to gross light touch. Strength ankles 4-/5 and symmetrical. No pain, Heel raises without pain, toe raises hurt R heel. reflexes 2/3 patella and achilles B. AROM R ankle 0 DF knee straight and 2 with knee bent, tightness obvious in gastroc and soleus. L is 2 and 4 degrees. Inversion and eversion are not painful and symmetrical. Tenderness to palpation achilles R minimally and into PF hcalcaneus origin also. L not as tender. Pes planus slightly in L arch but R appears good. SLS 10 seconds B. Balance/Special Test Scores Lower Extremity Functional Score: 53 Goals Goal 1:: sleep all night without waking due to pain Goal Time Frame: 4-6 Weeks Goal 2:: Pt feel 80% better in overall pain at 1/10 at worst Goal Time Frame: 4-6 Weeks Goal 3:: I management condition HEP to minimize future problems Goal Time Frame: 4-6 Weeks Goal 4:: LEFS 60 Goal Time Frame: 4-6 Weeks Rehabilitation Potential Physical Therapy Diagnosis: R foot pain waking up at night and limiting comfortable function. Rehabilitation Potential: Fair Anticipated Interventions Patient/Client Instruction: Educate patient on: Condition and Plan of Care For the Purpose of:: To decrease pain, To increase ROM, To improve nutrient delivery to tissue, To increase tolerance to activity/condition/position, To improve ability of physical actions for home/community/work/leisure and To improve gait and locomotor functions Therapeutic Exercise to Include: Strength training, Balance training, Flexibilty training, Gait and locomotor training, Passive ROM and Active ROM For the Purpose of:: To decrease pain, To increase ROM, To improve nutrient delivery to tissue, To improve muscle performance and motor function, To increase tolerance to activity/condition/position, To improve ability of physical actions for home/community/work/leisure and To improve gait and locomotor functions Manual Therapy Techniques to Include: Mobilization, Passive ROM and Soft tissue mobilization For the Purpose of:: To decrease pain, To decrease swelling/inflammation, To increase ROM and To improve nutrient delivery to tissue Thermo therapy (hot pack): Yes For the Purpose of:: To improve nutrient delivery to tissue Text: Thank you for the opportunity to evaluate your patient. For Medicare and Medicare HMO plans, please review the plan of care and approve it. It will need to be FAXED BACK to us at [phone] for Medicare purposes. For Medicare only, by signing this I certify the plan of care. Please let me know if there are questions or concerns regarding this plan of care. Physician Signature: Date:
--- NOTE | 2024-03-04 13:23 | HP.PT.NRP ---
Patient Information Patient Information: BALJIT YADAV was seen in my office for initial evaluation on 12/04/23. The following Plan of Care was established for this patient: POC Established Initial Frequency: 3x /Week Initial Duration: 4-6 Weeks Anticipated Interventions Patient/Client Instruction: Educate patient on: Condition and Plan of Care For the Purpose of:: To decrease pain, To increase ROM, To improve nutrient delivery to tissue, To increase tolerance to activity/condition/position, To improve ability of physical actions for home/community/work/leisure and To improve gait and locomotor functions Therapeutic Exercise to Include: Strength training, Balance training, Flexibilty training, Gait and locomotor training, Passive ROM and Active ROM For the Purpose of:: To decrease pain, To increase ROM, To improve nutrient delivery to tissue, To improve muscle performance and motor function, To increase tolerance to activity/condition/position, To improve ability of physical actions for home/community/work/leisure and To improve gait and locomotor functions Manual Therapy Techniques to Include: Mobilization, Passive ROM and Soft tissue mobilization For the Purpose of:: To decrease pain, To decrease swelling/inflammation, To increase ROM and To improve nutrient delivery to tissue Thermo therapy (hot pack): Yes For the Purpose of:: To improve nutrient delivery to tissue Last Seen Last Seen: This patient was last seen in our office 12/25/23. Pertinent comments regarding their Physical therapy will appear below: Pt seen 9 visits of POC and was 80% better. She did not attend any further visits after follow up with doctor. At this point, it has been over two months and I will discontinue from my care. At this point I will be discontinuing this patient from physical therapy. I would be happy to see this patient again in the future if found appropriate by the physician. Thank you! Dawit Ly, DPT, OCS, CSCS Balance/Gait/Functional tests Balance/Special Test Scores Lower Extremity Functional Score: 47
== END 2023-12-25 19:00 | disposition home or self-care (01) ==
LOC: PT 13:00
PROVIDERS: PCP Family Medicine; Referring Provider Student in an Organized Health Care Education/Training Program; Visit Provider Student in an Organized Health Care Education/Training Program
DX: M76.61 Achilles tendinitis, right leg (principal); M72.2 Plantar fascial fibromatosis
CPT/HCPCS: 97110; 97140; 97161; 97530

== ENCOUNTER → 2023-12-30 | Outpatient (CLI) | payer MEDICARE, OTHER, SELFPAY ==
--- NOTE | 2023-12-30 14:03 | CT_ITS ---
HISTORY: Screening. TECHNIQUE: Helically acquired images were obtained of the chest without contrast. A radiation dose optimization technique was used for this scan. 784 images. COMPARISON: 12/27/2022, 12/26/2020. FINDINGS: LARGE AIRWAYS: Mild fluid in the trachea. LUNGS: Moderate centrilobular emphysema with mild scarring. Table 4 mm nodules in the right upper and bilateral lower lobes. No new suspicious nodule or acute alveolar consolidation. PLEURA: No pneumothorax or significant pleural effusion. HEART/PERICARDIUM: Heart within normal limits in size with coronary artery calcification. No pericardial effusion. VESSELS: Thoracic aorta nondilated. MEDIASTINUM/CJ: No pathologically enlarged adenopathy. UPPER ABDOMEN: Unremarkable. BONES: Degenerative change. CT/Low Dose CT Lung Screening IMPRESSION: No significant interval change. Lung-RADS category 2: Continue annual screening with low dose CT. Electronically Signed: Shy Garrido MD at 14:55 EDT ,
== END | disposition home or self-care (01) ==
LOC: CT 14:01
PROVIDERS: PCP Family Medicine; Referring Provider Nurse Practitioner Acute Care; Visit Provider Nurse Practitioner Acute Care
DX: Z12.2 Encounter for screening for malignant neoplasm of respiratory organs (principal); F17.210 Nicotine dependence, cigarettes, uncomplicated
CPT/HCPCS: 71271

== ENCOUNTER → 2024-02-24 | Outpatient (CLI) | payer MEDICARE, OTHER, SELFPAY ==
[2024-02-24 18:21] LABS: Vitamin D,25 Hydroxy 85.4 ng/mL
== END | disposition home or self-care (01) ==
LOC: MFPLAB 15:29
PROVIDERS: PCP Family Medicine; Visit Provider Family Medicine
DX: E55.9 Vitamin D deficiency, unspecified (principal)
CPT/HCPCS: 36415; 82306

== ENCOUNTER → 2024-05-11 | Outpatient (CLI) | payer MEDICARE, OTHER, SELFPAY ==
--- NOTE | 2024-05-11 13:30 | BI_ITS ---
MAMMOGRAPHY - BILATERAL SCREENING REASON FOR EXAM: Female, 74 years old. Routine annual screening examination. PERTINENT HISTORY: Non-contributory. TECHNIQUE: Digital bilateral breast matt (3D mammographic acquisition) in the CC and MLO projections. 2-D mediolateral oblique (MLO) and craniocaudad (CC) views of both breasts were obtained. CAD: Full Field Digital Mammography with Computer Added Detection was performed. COMPARISON: Comparison is made with prior study dated May 09, 2023 and January 24, 2022. FINDINGS: Breast Composition: The breasts are heterogeneously dense, which may obscure small masses. There are no dominant masses or suspicious calcifications. No other significant abnormalities are identified. There has been no significant change since the prior study. BI/SCRN MAMM (CAD)W/MATT BILAT IMPRESSION: Stable bilateral screening mammogram. Yearly follow-up mammogram recommended. (A) ASSESSMENT CATEGORY: BIRADS Category 1: Negative. A letter regarding these results will be sent to the patient by the facility within 30 days. Approximately 10% of breast cancers are not detected by mammography. A normal mammogram should not delay biopsy of a clinically suspicious abnormality. [id number] Electronically Signed: Kieran Chaudhry MD at 14:27 EDT ,
== END | disposition home or self-care (01) ==
LOC: OPBI 13:30
PROVIDERS: PCP Internal Medicine; Referring Provider Internal Medicine; Visit Provider Internal Medicine
DX: Z12.31 Encounter for screening mammogram for malignant neoplasm of breast (principal)
CPT/HCPCS: 77063; 77067

== ENCOUNTER → 2024-08-03 | Outpatient (CLI) | payer MEDICARE, OTHER, SELFPAY ==
[2024-08-03 18:32] LABS: HIV - WCH Non-Reactive (Nonreactive); Syphilis Antibodies Non-reactive
== END | disposition home or self-care (01) ==
LOC: LAB 17:20
PROVIDERS: PCP Internal Medicine; Referring Provider Obstetrics & Gynecology; Visit Provider Obstetrics & Gynecology
DX: R63.4 Abnormal weight loss (principal); J34.89 Other specified disorders of nose and nasal sinuses
CPT/HCPCS: 36415; 86703; 86780

== ENCOUNTER → 2024-08-03 | Outpatient (CLI) | payer MEDICARE, OTHER, SELFPAY ==
[2024-08-06 23:21] LABS: HSV Culture Without Typing NEGATIVE
[2024-08-10 16:09] LABS: HPV APTIMA, High Risk Negative (Negative)
== END | disposition home or self-care (01) ==
PROVIDERS: PCP Internal Medicine; Referring Provider Obstetrics & Gynecology; Visit Provider Obstetrics & Gynecology
DX: Z12.4 Encounter for screening for malignant neoplasm of cervix (principal); N89.8 Other specified noninflammatory disorders of vagina
CPT/HCPCS: 87255; 87624; 88175; G0145

== ENCOUNTER → 2024-08-11 | Outpatient (CLI) | payer MEDICARE, OTHER, SELFPAY ==
--- NOTE | 2024-08-11 14:27 | US_ITS ---
STUDY: ULTRASOUND BREAST - LEFT REASON FOR EXAM: Female, 74 years old. Left lateral breast pain. TECHNIQUE: Axial and longitudinal images of the LEFT breast were performed with a high resolution ultrasound transducer. # OF IMAGES: 8 COMPARISON: Comparison is made with prior mammogram dated May 11, 2024. FINDINGS: LEFT Breast: The lateral aspect of the left breast was examined with ultrasound. There is a 7 mm x 8 mm x 4 mm well-defined hypoechoic nodule at the 3:00 position breast 6 cm from the nipple. This may represent a fibroadenoma. Biopsy recommended. US/Breast Limited Unilateral IMPRESSION: 7 mm x 8 mm x 4 mm well-defined hypoechoic nodule at the 3:00 position breast at 6 cm from the nipple biopsy recommended. ASSESSMENT CATEGORY: BIRADS Category 4: Suspicious - Biopsy Should Be Considered. A letter regarding these results will be sent to the patient by the facility within 30 days. Electronically Signed: Kieran Chaudhry MD at 13:41 EDT ,
== END | disposition home or self-care (01) ==
LOC: OPBI 14:28 → OPUS 14:29
PROVIDERS: PCP Internal Medicine; Referring Provider Obstetrics & Gynecology; Visit Provider Obstetrics & Gynecology
DX: N64.4 Mastodynia (principal)
CPT/HCPCS: 76642

== ENCOUNTER → 2024-08-14 | Outpatient (CLI) | payer MEDICARE, OTHER, SELFPAY | END | disposition home or self-care (01) | LOC: US 13:33 | PROVIDERS: PCP Internal Medicine; Referring Provider Obstetrics & Gynecology; Visit Provider Obstetrics & Gynecology | DX: R14.0 Abdominal distension (gaseous) (principal) | CPT/HCPCS: 76830; 76856 ==

== ENCOUNTER → 2024-08-18 | Outpatient (CLI) | payer MEDICARE, OTHER, SELFPAY ==
--- NOTE | 2024-08-17 09:30 | BRBX_PTH ---
PATIENT: BALJIT YADAV LOC: [facility] U#:[id number] AGE/SX: 74/F ROOM: RE08/18/[address]: Dr. Herb Torrez MD : 1950 BED: DIS: 08/18/2024 SPEC #: [id number] RECD: 08/18/24 13:23 STATUS: [address] #: [id number] SWETHA: 08/17/24 09:[address]: Herb Torrez DEPT: SURGICAL PATHOLOGY RECD BY: Cecelia Arechiga ENTERED: 08/18/24 13:42 SP TYPE: BREAST BX OTHR DR: Dr. Ira Paula MD Tissues: Left breast, NOS Procedures: Surgery Specimen Level IV HEADER OPERATION: Left breast biopsy PRE-OP DIAGNOSIS: Left breast mass TISSUE SUBMITTED: Left breast tissue Ischemic Time: 1 minute Fixation Time: 10 hours MICROSCOPIC DIAGNOSIS Left breast, core biopsy: Fragments of benign breast tissue with dense fibrosis. Negative for atypia or malignancy. See comment. 08/19/2024 COMMENT Correlation with clinical, radiologic findings and appropriate follow up are necessary. MICROSCOPIC DESCRIPTION Slides are reviewed. GROSS DESCRIPTION Received in fixative is one container labeled with the patient's name and designated Left breast tissue. The specimen consists of multiple irregular fragments of hu-yellow fibroadipose tissue that in aggregate measure 1.5 x 0.5 x 0.1 cm. The specimen is totally submitted in one cassette. 08/18/2024 TC:5 CPT:05835
== END | disposition home or self-care (01) ==
LOC: LABSPEC 13:37
PROVIDERS: PCP Internal Medicine; Referring Provider Surgery; Visit Provider Surgery
DX: R92.30 Dense breasts, unspecified (principal)
CPT/HCPCS: 88305

== ENCOUNTER → 2024-12-30 | Outpatient (CLI) | payer MEDICARE, OTHER, SELFPAY ==
--- NOTE | 2024-12-30 14:05 | CT_ITS ---
PROCEDURE: LOW DOSE CT LUNG SCREENING 12/30/2024 REASON FOR EXAM: SMOKER TECHNIQUE: Low Dose CT chest was performed without contrast. Multiplanar reformats were generated. One or more dose reduction techniques were used (e.g., Automated exposure control, adjustment of the mA and/or kV according to patient size, use of iterative reconstruction technique). REFERENCE LINK: mSnap Lung-RADS RADIATION DOSE SUMMARY: CTDlvol: 1.56 mGy DLP: 54.68 mGycm COMPARISON: None. FINDINGS: Note that evaluation of the vasculature, isaias, and soft tissues is limited in the absence of IV contrast. Exam limited by photon starvation in the upper abdomen and near the thoracic inlet. Heart/pericardium:Mild/moderate but multivessel coronary atherosclerosis and/or stents. Mild aortic and trace mitral annular calcification. Aorta: Mild/moderate calcific atherosclerosis. Pulmonary arteries: Unremarkable. Lymph nodes: Unremarkable. Lungs/pleura: Emphysema. Minimal dependent atelectasis/scarring. Subpleural RIGHT lower lobe nodule posteriorly measures 6 x 5 mm (series 2, image 189). RIGHT upper lobe nodules up to 4 mm (image 82). LEFT lower lobe nodule, 4 x 5 mm (image 193). Airways: Unremarkable. Chest wall: Unremarkable. Upper abdomen:Atherosclerosis, otherwise grossly unremarkable but not well evaluated. Musculoskeletal: Demineralization. Multilevel spondylosis. Mild thoracic levoscoliosis. Degenerative changes of the LEFT shoulder. CT/Low Dose CT Lung Screening IMPRESSION: 1. Lung-RADS category: 2 (benign appearance or behavior, <1% chance of malignan cy); continue annual screening with LDCT. 2. Other clinically significant or potentially significant non-lung cancer find ings: None. 3. Additional description as above. Recommendations per [employer]. Lung CT Screening Reporting and Data System (Lung-RADS) v. 2022 Reading Location: [id number]
== END | disposition home or self-care (01) ==
LOC: CT 14:00
PROVIDERS: PCP Internal Medicine; Referring Provider Nurse Practitioner Acute Care; Visit Provider Nurse Practitioner Acute Care
DX: F17.210 Nicotine dependence, cigarettes, uncomplicated (principal)
CPT/HCPCS: 71271

== ENCOUNTER → 2025-02-18 | Outpatient (CLI) | payer MEDICARE, OTHER, SELFPAY | END | disposition home or self-care (01) | LOC: PSN 13:05 | PROVIDERS: PCP Internal Medicine; Referring Provider Nurse Practitioner Acute Care; Visit Provider Nurse Practitioner Acute Care | DX: J44.9 Chronic obstructive pulmonary disease, unspecified (principal) | CPT/HCPCS: 94060; 94726; 94729 ==

== ENCOUNTER → 2025-02-26 | Outpatient (CLI) | payer MEDICARE, OTHER, SELFPAY ==
[2025-02-26 13:37] VITALS: PULSE 76; PULSE 77; PULSE 80; PULSE 85; PULSE 89; PULSE 90; O2SAT 86; O2SAT 90; O2SAT 91; O2SAT 92
--- NOTE | 2025-02-26 13:40 | CPS ---
1 REST BREAK TAKEN TO APPLY 02 AT 1 MINUTE INTO TESTING. MAINTAINED 2LPM THROUGHOUT TESTING. PAT[facility], NO CURRENT OXYGEN AT HOME. HER F/U WITH [facility]PM OFFICE IS IN [facility].
--- NOTE | 2025-03-08 07:14 | WT_ITS ---
PSN 6 Minute Walk Test 6 Minute Walk Test 6 Minute Walk Test: 6 Minute Walk Test PSN:6-Minute Walk Test Start: 02/26/25 13:37 Freq: Status: Discharge Protocol: [id number] Document 02/26/25 13:37 [facility] (Rec: 02/26/25 13:45 [facility] [id number]) 6 Minute Walk Test Date Performed 02/26/25 Time Performed 12:30 Height 5 ft 2 in Weight: 122 lb Weight in Pounds 122.0 lbs Assistive device None used: Pre-test Oxygen Delivery Room Air Method Pulse Ox (%) 90 Pulse Rate (60-100 76 beats/min) Dyspnea Geovanny Scale ( 3 0-10) Reported Symptoms Increased Work of Breathing 1st minute Oxygen Delivery Room Air Method Pulse Ox (%) 86 Pulse Rate (60-100 80 beats/min) Dyspnea Geovanny Scale ( 3 0-10) Number of Rests 1 Taken Reported Symptoms Increased Work of Breathing 2nd minute Oxygen Flow Rate (L/ 2 min) (L/min) Oxygen Delivery Nasal Cannula Method Pulse Ox (%) 92 Pulse Rate (60-100 85 beats/min) Dyspnea Geovanny Scale ( 3 0-10) Number of Rests 0 Taken Reported Symptoms Increased Work of Breathing 3rd minute Oxygen Flow Rate (L/ 2 min) (L/min) Oxygen Delivery Nasal Cannula Method Pulse Ox (%) 91 Pulse Rate (60-100 90 beats/min) Dyspnea Geovanny Scale ( 3 0-10) Number of Rests 0 Taken Reported Symptoms Increased Work of Breathing 4th minute Oxygen Flow Rate (L/ 2 min) (L/min) Oxygen Delivery Nasal Cannula Method Pulse Ox (%) 92 Pulse Rate (60-100 89 beats/min) Dyspnea Geovanny Scale ( 3 0-10) Number of Rests 0 Taken Reported Symptoms Increased Work of Breathing 5th minute Oxygen Flow Rate (L/ 2 min) (L/min) Oxygen Delivery Nasal Cannula Method Pulse Ox (%) 91 Pulse Rate (60-100 90 beats/min) Dyspnea Geovanny Scale ( 3 0-10) Number of Rests 0 Taken Reported Symptoms Increased Work of Breathing 6th minute Oxygen Flow Rate (L/ 2 min) (L/min) Oxygen Delivery Nasal Cannula Method Pulse Ox (%) 92 Pulse Rate (60-100 89 beats/min) Dyspnea Geovanny Scale ( 3 0-10) Number of Rests 0 Taken Reported Symptoms Increased Work of Breathing Post-test Oxygen Delivery Room Air Method Pulse Ox (%) 91 Pulse Rate (60-100 77 beats/min) Dyspnea Geovanny Scale ( 3 0-10) Reported Symptoms Increased Work of Breathing Full Laps Walked 10 Partial Lap, Number 13 of Tiles Walked Total Distance 603 Walked (ft) 02/26/25 13:40 Cardiopulmonary Services by [facility],January 12 REST BREAK TAKEN TO APPLY 02 AT 1 MINUTE INTO TESTING. MAINTAINED 2LPM THROUG HOUT TESTING. PATIENT HAS [facility]AP THER[facility] THROUGH [facility], NO CURRENT OXYGEN AT HOME. HER F/U WITH BPM OFFICE IS IN [facility]. Initialized on 02/26/25 13:40 - END OF NOTE Interpretation Interpretation: The patient ambulated 603 feet over the course of 6 minutes beginning on room air without assistive devices. Pretesting oxygen saturation was noted to be 90% on room air. With ambulation, the aime oxygen saturation was 86%, requiring 2 L/min of supplemental oxygen in order to improve saturations with exertion. Recommendations Recommendations: 2 L/min of supplemental oxygen is required with exertion.
== END | disposition home or self-care (01) ==
LOC: PSN 12:06
PROVIDERS: PCP Internal Medicine; Referring Provider Nurse Practitioner Acute Care; Visit Provider Nurse Practitioner Acute Care
DX: J44.9 Chronic obstructive pulmonary disease, unspecified (principal)
CPT/HCPCS: 94618

== ENCOUNTER → 2025-05-14 | Outpatient (CLI) | payer MEDICARE, OTHER, SELFPAY ==
[2025-05-14 16:36] LABS: Hematocrit 49.6 % (37-47); Hemoglobin 16.6 g/dL (12.0-15.0); Immature Granulocytes Count 0.040 X10^3/uL (0.0-0.0); Mean Corp Hgb Conc 33.5 g/dL (32-36); Mean Corpuscular Volume 93.9 fL (81-99); Mean Platelet Vol. 11.5 fl (6.2-12.0); NRBC Flagged by Analyzer 0 % (0-5); Platelet Count 155 K/mm3 (150-450); RBC Distribution Width CV 15.1 % (11.6-14.6); RBC Distribution Width SD 52.7 fl (35.1-43.9); Red Blood Count 5.28 M/mm3 (4.2-5.4); White Blood Count 10.2 K/mm3 (4.4-11.0)
[2025-05-14 17:30] LABS: AST(SGOT) 20 U/L (<=31); Alanine Aminotransfer ALT/SGPT 13 U/L (<=34); Albumin, Serum 4.3 g/dL (3.4-4.8); Alkaline Phosphatase 66 U/L (35-104); Anion Gap 11 (5-15); BUN 7 mg/dL (4-19); BUN/Creat Ratio 9.8 RATIO (10-20); Calcium,Total 9.9 mg/dL (7.6-11.0); Carbon Dioxide 29.0 mmol/L (21.0-32.0); Chloride 100 mmol/L (98-108); Cholesterol 211 mg/dL (<=200); Globulin 2.9 g/dL (2.2-4.2); Glucose 89 mg/dL (70-99); Low Density Lipoprotein Calc. 133 mg/dL; Potassium 4.3 mmol/L (3.3-5.1); Triglycerides 131 mg/dL; Very Low Density Lipoprotein 26 mg/dL (5-40); Vitamin B12 424 pg/mL (180-914); Vitamin D,25 Hydroxy 55.3 ng/mL (30-100); cholesterol:hdl ratio screen 4.03
[2025-05-17 14:08] LABS: ANTINUCLEAR ANTIBODIES DIRECT Negative (Negative); Anti-Chromatin <0.2 AI (0.0-0.9); Anti-Jo <0.2 AI (0.0-0.9); Anti-dsDNA Ab 1 IU/mL (0-9); SJOGREN'S Anti-SS-A test < 0.2 AI (0.0-0.9); SJOGREN'S Anti-SS-B test < 0.2 AI (0.0-0.9)
== END | disposition home or self-care (01) ==
LOC: BIMLAB 15:21
PROVIDERS: PCP Internal Medicine; Referring Provider Internal Medicine; Visit Provider Internal Medicine
DX: E03.9 Hypothyroidism, unspecified (principal); R63.4 Abnormal weight loss; G62.9 Polyneuropathy, unspecified; M85.80 Other specified disorders of bone density and structure, unspecified site
CPT/HCPCS: 36415; 80053; 80061; 82306; 82607; 84443; 85025; 86038; 86225; 86235

== ENCOUNTER → 2025-05-27 | Outpatient (CLI) | payer MEDICARE, OTHER, SELFPAY ==
--- NOTE | 2025-05-27 13:00 | BD_ITS ---
PROCEDURE: DEXA BONE DENSITY STUDY 05/27/2025 REASON FOR EXAM: OSTEOPENIA F, age 75 y/o . Postmenopausal. TECHNIQUE: DEXA BONE DENSITY STUDY COMPARISON: Prior study dated May 09, 2023. FINDINGS: BMD and T-SCORES Lumbar spine: 0.849 g/cm2, T-score -1.7 Levels: L1 through L4 Change from prior: Loss of 10.2%. Left femoral neck: 0.569 g/cm2, T-score -2.5 Femoral neck comparison data not recommended for monitoring change. Left total hip: 0.646 g/cm2, T-score -2.4 Change from prior: Loss of 12.7%. Right femoral neck: 0.581 g/cm2, T-score -2.4 Femoral neck comparison data not recommended for monitoring change. Right total hip: 0.612 g/cm2, T-score -2.7 Change from prior: Loss of 9.5%. The World Health Organization has defined the following categories based on bone density: Normal bone density: T-score equal to or greater than -1.0 Osteopenia: T-score between -1.0 and -2.5 Osteoporosis: T-score equal to or less than -2.5 The patient does meet the pharmacological treatment recommendations for prevention of osteoporosis. BD/Dexa Bone Density Study IMPRESSION: OSTEOPOROSIS. Recommend follow-up as clinically warranted. Reading Location: [place] [id number]
--- NOTE | 2025-05-27 13:00 | BI_ITS ---
EXAM: SCRN MAMM (CAD)W/MATT BILAT DATE: 05/27/2025 CLINICAL HISTORY: F, Age 75 y/o , SCREENING No family history. TECHNIQUE: SCRN MAMM (CAD)W/MATT BILAT COMPARISON: Prior exam(s) dated August 11, 2024.. FINDINGS: TISSUE DENSITY: The breasts are extremely dense, which lowers the sensitivity of mammography. Bilateral Breast Mammographic Findings: No significant masses, calcifications or other abnormalities are identified. A tissue clip marker is seen in the deep lateral slightly upper aspect of the left breast. No suspicious masses, areas of developing architectural distortion, or suspicious calcifications. There has been no significant interval change. BI/SCRN MAMM (CAD)W/MATT BILAT IMPRESSION: Stable examination. OVERALL FINAL ASSESSMENT BI-RADS 2: BENIGN RECOMMENDATION: Routine annual follow-up in 1 Year A letter with findings and recommendations will be mailed to the patient. Reading Location: [place] [id number]
== END | disposition home or self-care (01) ==
LOC: OPBD 12:59
PROVIDERS: PCP Internal Medicine; Referring Provider Internal Medicine; Visit Provider Internal Medicine
DX: Z12.31 Encounter for screening mammogram for malignant neoplasm of breast (principal); Z78.0 Asymptomatic menopausal state
CPT/HCPCS: 77063; 77067; 77080

== ENCOUNTER → 2025-07-09 | Outpatient (CLI) | payer MEDICARE, OTHER, SELFPAY ==
--- NOTE | 2025-07-09 12:56 | US_ITS ---
PROCEDURE: BREAST LIMITED UNILATERAL 07/09/2025 REASON FOR EXAM: F, Age 75 y/o , BREAST LUMP/PAIN COMPARISON: . TECHNIQUE: Procedure Code: USBRSTLIMIT Modality: US Procedure: BREAST LIMITED UNILATERAL FINDINGS: There is no ultrasound abnormality identified in the right breast at the 4 o'clock, 9 cm from the nipple position to correlate to the palpable abnormality. The palpable abnormality appears to represent a ridge of normal breast tissue. There is no ultrasound abnormality identified in the lower inner quadrant of the right breast to correlate to the area of breast pain. This area appears to represent a ridge of normal breast tissue. US/Breast Limited Unilateral IMPRESSION: Unremarkable right breast ultrasound examination. The patient should return in May 2026 for routine yearly screening mammograp hy. If the palpable area does increase in size, further workup with breast MRI should be considered. BI-RADS 1: NEGATIVE RECOMMENDATION: Routine annual follow-up in 1 Year Reading Location: [id number]
== END | disposition home or self-care (01) ==
LOC: OPUS 12:54
PROVIDERS: PCP Internal Medicine; Referring Provider Internal Medicine; Visit Provider Internal Medicine
DX: N64.4 Mastodynia (principal)
CPT/HCPCS: 76642

== ENCOUNTER → 2025-08-10 | Outpatient (CLI) | payer MEDICARE, OTHER, SELFPAY ==
--- NOTE | 2025-08-10 13:42 | NEURO_ITS ---
NCS and/or EMG Patient Report
--- NOTE | 2025-08-10 13:42 | NEURO ---
NCS and/or EMG Patient Report Ordering Doctor: Ira Paula DATE OF SERVICE: 08/10/25 Clinical Summary: 75 year old female patient with symptoms of right foot pain. Nerve Conduction Studies Summary: Nerve conduction studies were performed in the right lower extremity. There was right peroneal motor conduction velocity slowing across the fibular head greater than 10 m/s. Needle Examination Summary: Needle examination of select muscles of the right lower extremity was normal. Impression: This is an abnormal study. 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 There is no electrodiagnostic evidence of a right lumbosacral radiculopathy or large-fiber peripheral polyneurpathy. Multi Select Codes Neurology Neurology Interp Codes: 42258-35 Musc test done w/n test comp (interp) (1) and 68054-55 Nrv cndj tst 3-4 studies (interp)
== END | disposition home or self-care (01) ==
PROVIDERS: PCP Internal Medicine; Referring Provider Internal Medicine; Visit Provider Internal Medicine
DX: E03.9 Hypothyroidism, unspecified (principal); M79.671 Pain in right foot
CPT/HCPCS: 36415; 84443; 95886; 95908